=== PATIENT | female | born 1985 | race Caucasian/White ===

== ENCOUNTER 2016-04-13 15:04 | Emergency (ER) | payer OTHER | END 2016-04-13 15:43 | disposition left against medical advice (07) | LOC: UCEAST 15:04 | DX: O26.892 Other specified pregnancy related conditions, second trimester (principal); Z3A.26 26 weeks gestation of pregnancy; M79.89 Other specified soft tissue disorders; Z53.21 Procedure and treatment not carried out due to patient leaving prior to being seen by health care provider ==

== ENCOUNTER 2016-04-13 16:20 | Emergency (ER) | payer OTHER ==
[2016-04-13 18:02] LABS: Hematocrit 35 % (35-47); Hemoglobin 11.9 g/dl (12.0-16.0); Mean Corpuscular HGB Conc 34 g/dl (31-36); Mean Corpuscular Hemoglobin 30 pg (27-31); Mean Corpuscular Volume 90 fL (80-97); Mean Platelet Volume 10 um3 (7.4-10.4); Red Blood Count 3.95 10^6/ul (4.0-5.4); Red Cell Distribution Width 13 % (10.5-15); White Blood Count 7.6 10^3/ul (3.5-10.8)
--- NOTE | 2016-04-13 18:28 | RAD ---
HISTORY: Right calf pain COMPARISONS: None relevant TECHNIQUE: Multiple transverse and longitudinal ultrasound images were obtained of the right lower extremity from the level of the common femoral vein inferiorly through to the infrapopliteal veins using grayscale, color Doppler, and spectral Doppler imaging with and without compression and with augmentation. Comparison images were obtained of the contralateral common femoral vein. FINDINGS: VEINS: The venous system of the right lower extremity is compressible throughout its course, with normal flow on color Doppler imaging and normal response to augmentation on spectral Doppler imaging. SOFT TISSUES: Unremarkable. OTHER FINDINGS: None. IMPRESSION: NO RIGHT LOWER EXTREMITY DEEP VEIN THROMBOSIS
[2016-04-13 18:56] LABS: Albumin 3.6 g/dL (3.2-5.2); BUN/Creatinine Ratio 11.8 (8-20); Calcium 9.2 mg/dL (8.6-10.3); EGFR African American 131.6 (>60); EGFR Non-African American 102.3 (>60); Globulin 2.5 g/dL (2-4); Potassium 3.7 mmol/L (3.5-5.0); Total Bilirubin 0.4 mg/dL (0.2-1.0); Total Protein 6.1 g/dL (6.4-8.9)
[2016-04-13 19:16] VITALS: BP 137/91
[2016-04-13 19:20] LABS: Urine Bilirubin Negative (Negative); Urine Glucose Negative (Negative); Urine Nitrite Negative (Negative)
--- NOTE | 2016-04-13 19:32 | ED ---
Vpiul Echevarria Claudia, scribed for Mukul Almanzar MD on 04/13/16 at 1746 . Lower Extremity - HPI Summary HPI Summary: 30 year old female presents to the ED with right lateral lower leg pain sudden onset today. She denies any trauma. Pt is 27 weeks . She also notes that she called her PUBLIC ACCOUNTANT today and was awaiting their call. Pt denies any abd pain, vaginal bleeding/discharge, fever, chills. pt notes pain as 6/10 which is aggravated with ambulation. - History of Current Complaint Chief Complaint: EDExtremityLower Stated Complaint: RIGHT LEG PAIN AND SWELLING/27 WKS PREG Time Seen by Provider: 04/13/16 17:35 Hx Last Menstrual Period: 09/16/15 Onset of Pain: Days Pain Intensity: 6 Pain Scale Used: 0-10 Numeric Associated Signs And Symptoms: Negative: Abdominal Pain, Knee Pain Aggravating Factor(s): Ambulation - Allergies/Home Medications Allergies/Adverse Reactions: Allergies Allergy/AdvReac Type Severity Reaction Status Date / Time Fish Allergy Allergy Airway Verified 11/04/15 20:49 Obstruction PMH/Surg Hx/FS Hx/Imm Hx Previously Healthy: Yes Endocrine/Hematology History: Denies: Hx Diabetes, Hx Thyroid Disease Cardiovascular History: Reports: Hx Hypertension - Adrenal mass, kidney mass Denies: Hx Pacemaker/ICD Respiratory History: Denies: Hx Asthma, Hx Chronic Obstructive Pulmonary Disease (COPD) GI History: Denies: Hx Ulcer Sensory History: Denies: Hx Hearing Aid Psychiatric History: Denies: Hx Panic Disorder - Surgical History Surgery Procedure, Year, and Place: 2 c-sect Infectious Disease History: No Infectious Disease History: Denies: Hx Hepatitis, Hx Human Immunodeficiency Virus (HIV), History Other Infectious Disease, Traveled Outside the [place] in Last 30 Days - Family History Known Family History: Negative: Seizure Disorder - Social History Occupation: Employed Full-time Lives: With Family Alcohol Use: Rare Substance Use Type: Reports: None Smoking Status (MU): Never Smoked Tobacco Review of Systems Constitutional: Negative Negative: Fever, Chills Eyes: Negative ENT: Negative Cardiovascular: Negative Respiratory: Negative Gastrointestinal: Negative Negative: Abdominal Pain Genitourinary: Negative Negative: discharge Positive: Other - right lower leg pain Skin: Negative Neurological: Negative Psychological: Normal All Other Systems Reviewed And Are Negative: Yes Physical Exam Triage Information Reviewed: Yes Vital Signs On Initial Exam: Initial Vitals Temp Pulse Resp BP Pulse Ox 98.2 F 83 20 156/97 100 04/13/16 16:23 04/13/16 16:23 04/13/16 16:23 04/13/16 16:23 04/13/16 16:23 Vital Signs Reviewed: Yes Appearance: Positive: Well-Appearing, No Pain Distress, Well-Nourished Skin: Positive: Warm, Skin Color Reflects Adequate Perfusion, Dry Eyes: Positive: Normal ENT: Positive: Normal ENT inspection Respiratory/Lung Sounds: Positive: Clear to Auscultation, Breath Sounds Present Cardiovascular: Positive: RRR, Other - elevated BP. Negative: Leg Edema Left, Leg Edema Right Abdomen Description: Positive: Nontender, Soft Musculoskeletal: Positive: Normal, Strength/ROM Intact Neurological: Positive: Normal Psychiatric: Positive: Normal, Affect/Mood Appropriate Diagnostics - Vital Signs Vital Signs Temp Pulse Resp BP Pulse Ox 04/13/16 16:23 98.2 F 83 20 156/97 100 - Laboratory Lab Results: Lab Results 04/13/16 04/13/16 04/13/16 Range/Units 17:55 17:55 18:50 WBC 7.6 (3.5-10.8) 10^3/ul RBC 3.95 L (4.0-5.4) 10^6/ul Hgb 11.9 L (12.0-16.0) g/dl Hct 35 (35-47) % MCV 90 (80-97) fL MCH 30 (27-31) pg MCHC 34 (31-36) g/dl RDW 13 (10.5-15) % Plt Count 156 (150-450) 10^3/ul MPV 10 (7.4-10.4) um3 Sodium 136 (133-145) mmol/L Potassium 3.7 (3.5-5.0) mmol/L Chloride 104 (101-111) mmol/L Carbon Dioxide 27 (22-32) mmol/L Anion Gap 5 (2-11) mmol/L BUN 8 (6-24) mg/dL Creatinine 0.68 (0.51-0.95) mg/dL Est GFR ( Amer) 131.6 (>60) Est GFR (Non-Af Amer) 102.3 (>60) BUN/Creatinine Ratio 11.8 (8-20) Glucose 92 (70-100) mg/dL Calcium 9.2 (8.6-10.3) mg/dL Total Bilirubin 0.40 (0.2-1.0) mg/dL AST 17 (13-39) U/L ALT 12 (7-52) U/L Alkaline Phosphatase 50 (34-104) U/L Lactate Dehydrogenase 140 (140-271) U/L Total Protein 6.1 L (6.4-8.9) g/dL Albumin 3.6 (3.2-5.2) g/dL Globulin 2.5 (2-4) g/dL Albumin/Globulin Ratio 1.4 (1-3) Urine Color Yellow Urine Appearance Cloudy Urine pH 7.0 (5-9) Ur Specific [place] 1.015 (1.010-1.030) Urine Protein Negative (Negative) Urine Ketones Negative (Negative) Urine Blood Negative (Negative) Urine Nitrate Negative (Negative) Urine Bilirubin Negative (Negative) Urine Urobilinogen Negative (Negative) Ur Leukocyte Esterase Negative (Negative) Urine Glucose Negative (Negative) Result Diagrams: 04/13/16 17:55 04/13/16 17:55 Lab Statement: Any lab studies that have been ordered have been reviewed, and results considered in the medical decision making process. - Additional Comments Diagnostic Additional Comments: LE VENOUS DOPPLER STUDY: NO RIGHT LOWER EXTREMITY DEEP VEIN THROMBOSIS Re-Evaluation - Re-Evaluation 1 Re-Evaluation Time: 19:07 Change: Improved - Pt is feeling improved Lower Extremity Course/Dx - Diagnoses Differential Diagnosis/HQI/PQRI: Positive: Contusion, DVT, Other - Primary concern for muscle pain, but will eval for DVT since . Low wells risk. Bloodwork for HELLP, but will consult with PUBLIC ACCOUNTANT after labwork since already with HTn in on labetalol. Provider Diagnoses: Leg pain, lateral - Physician Notifications Discussed Care of Patient With: DIscussed care of pt with Dr. Rodgers whom recoomends d/c with f/o with OBGYN this week. Time Discussed With Above Provider: 19:05 Discharge - Discharge Plan Condition: Stable Disposition: HOME Patient Education Materials: Leg Pain (ED) Referrals: Angeline Lim, BORDER MEASURER [Primary Care Provider] - If Needed The documentation as recorded by the Vipul tejada Claudia accurately reflects the service I personally performed and the decisions made by me, Mukul Almanzar MD.
== END 2016-04-13 19:16 | disposition home or self-care (01) ==
LOC: ED 16:20
DX: M79.661 Pain in right lower leg (principal)
CPT/HCPCS: 36415; 80053; 81003; 83615; 85027; 99282

== ENCOUNTER 2016-06-16 20:14 | Observation (INO) | payer OTHER ==
[2016-06-16 20:48] LABS: Hematocrit 35 % (35-47); Hemoglobin 11.4 g/dl (12.0-16.0); Mean Corpuscular HGB Conc 33 g/dl (31-36); Mean Corpuscular Hemoglobin 27 pg (27-31); Mean Corpuscular Volume 81 fL (80-97); Mean Platelet Volume 10 um3 (7.4-10.4); Red Cell Distribution Width 14 % (10.5-15); White Blood Count 8.1 10^3/ul (3.5-10.8)
[2016-06-16 21:13] LABS: Uric Acid 4.9 mg/dL (2.3-6.6)
[2016-06-16] MEDS ORDERED: oxyCODONE/Acetamin 5/325 MG* TAB PO PRN (21:34)
[2016-06-16] MEDS ORDERED: oxyCODONE/Acetamin 5/325 MG* TAB ONE (21:35)
[2016-06-16] MEDS ORDERED: Labetalol TAB* 100 MG ONE (21:35)
[2016-06-16] MEDS ORDERED: Labetalol TAB* 100 MG PO ONE (21:35)
[2016-06-17 06:17] VITALS: BP 123/77
[2016-06-17] MEDS ORDERED: Labetalol TAB* 200 MG PO SCH ×2 (10:00)
== END 2016-06-17 15:40 | disposition home or self-care (01) ==
LOC: MCHOBOUT 20:14 → MCHOB 21:38
PROVIDERS: ADMIT Obstetrics & Gynecology; ATTEND Obstetrics & Gynecology
DX: O16.3 Unspecified maternal hypertension, third trimester (principal); Z3A.35 35 weeks gestation of pregnancy; D69.6 Thrombocytopenia, unspecified
CPT/HCPCS: 36415; 81002; 84450; 84460; 84550; 85025; 99215; A9270-GY; G0378; G0463

== ENCOUNTER 2016-06-29 08:29 | Inpatient (IN) | payer OTHER ==
[2016-06-29 10:17] LABS: Hematocrit 38 % (35-47); Hemoglobin 12.1 g/dl (12.0-16.0); Mean Corpuscular HGB Conc 32 g/dl (31-36); Mean Corpuscular Hemoglobin 26 pg (27-31); Mean Corpuscular Volume 82 fL (80-97); Mean Platelet Volume 10 um3 (7.4-10.4); Red Blood Count 4.61 10^6/ul (4.0-5.4); Red Cell Distribution Width 15 % (10.5-15); White Blood Count 7.9 10^3/ul (3.5-10.8)
[2016-06-29 10:18] LABS: Add Diff/Slide Review? Slide Review Added; Comments Flag Yes
[2016-06-29 10:26] LABS: Albumin 3.7 g/dL (3.2-5.2); BUN/Creatinine Ratio 15.6 (8-20); Calcium 9.7 mg/dL (8.6-10.3); EGFR Non-African American 88.6 (>60); Potassium 3.5 mmol/L (3.5-5.0); Total Bilirubin 0.8 mg/dL (0.2-1.0); Total Protein 6.7 g/dL (6.4-8.9); Uric Acid 7.3 mg/dL (2.3-6.6)
[2016-06-29 11:45] LABS: Urine Bacteria Absent (Absent); Urine Bilirubin Negative (Negative); Urine Glucose Negative (Negative); Urine Nitrite Negative (Negative)
--- NOTE | 2016-06-29 14:11 | RAD ---
Indication: RIGHT upper quadrant pain. Nausea and vomiting. Comparison: No relevant prior exams available on the [facility]. Technique: RIGHT upper quadrant ultrasound. Report: Gravid uterus limits acoustic window. Appropriate direction flow documented in the portal and hepatic veins. 14.4 cm cephalocaudal liver is increased in echogenicity consistent with fatty infiltration. No focal hepatic lesions or biliary dilatation. 2.5 mm common bile duct. Adequately distended gallbladder with normal 2 mm wall is without sonographic abnormality. Negative for sonographic Vaughan's sign. Limited visualized pancreas is grossly unremarkable. Negative for ascites. 10.5 x 4.1 x 6.1 cm RIGHT kidney is remarkable for echogenic papilla and moderately thin cortex. No conspicuous shadowing echogenic foci to confirm nephrolithiasis. Negative for hydronephrosis. IMPRESSION: 1. Fatty infiltration of the liver. 2. Negative for gallbladder pathology. 3. Suggestion of medullary sponge kidney without conspicuous stones or hydronephrosis.
[2016-06-29] MEDS ORDERED: Sodium Citrate/Citric Acid* 15 ML UDC PO ONE (15:40)
[2016-06-29] MEDS ORDERED: Acetaminophen TAB* 325 MG PO PRN (15:41)
[2016-06-29] MEDS: SUCRALFATE 1 GM/10 ML PO SCH (17:40)
[2016-06-29] MEDS ORDERED: Nalbuphine* 20 MG/ML 1 ML VIAL IV PRN (19:19)
[2016-06-29] MEDS ORDERED: Promethazine INJ(RESTRICTED)* 25 MG/ML 1 ML VIAL IV PRN (19:19)
[2016-06-29] MEDS ORDERED: Nalbuphine* 20 MG/ML 1 ML VIAL ONE (20:00)
[2016-06-30] MEDS ORDERED: oxyCODONE/Acetamin 5/325 MG* TAB PO PRN (02:53)
[2016-06-30 06:36] LABS: Hematocrit 32 % (35-47); Hemoglobin 10.3 g/dl (12.0-16.0); Mean Corpuscular HGB Conc 32 g/dl (31-36); Mean Corpuscular Hemoglobin 26 pg (27-31); Mean Corpuscular Volume 81 fL (80-97); Mean Platelet Volume 10 um3 (7.4-10.4); Red Cell Distribution Width 15 % (10.5-15); White Blood Count 8.7 10^3/ul (3.5-10.8)
[2016-06-30 07:09] LABS: ALT 27 U/L (7-52); AST 26 U/L (13-39); Alkaline Phosphatase 109 U/L (34-104); Anion Gap 12 mmol/L (2-11); BUN/Creatinine Ratio 7.8 (8-20); Blood Urea Nitrogen 5 mg/dL (6-24); CO2 Carbon Dioxide 20 mmol/L (22-32); Calcium 8.4 mg/dL (8.6-10.3); Chloride 105 mmol/L (101-111); EGFR African American 141.1 (>60); EGFR Non-African American 109.7 (>60); Globulin 2.8 g/dL (2-4); Glucose 71 mg/dL (70-100); Potassium 3.2 mmol/L (3.5-5.0); Sodium 137 mmol/L (133-145); Total Protein 5.8 g/dL (6.4-8.9)
[2016-06-30] MEDS: SUCRALFATE 1 GM/10 ML PO SCH ×2 (08:25→11:43)
[2016-06-30 10:21] LABS: Urine Total Protein/24HR 266 mg/24Hr (0-165)
[2016-06-30 11:32] LABS: Lipase < 10 U/L (11.0-82.0)
[2016-06-30] MEDS: Labetalol TAB* 200 MG PO SCH ×2 (11:44→14:42)
[2016-06-30] MEDS ORDERED: SUCRALFATE 1 GM/10 ML PO SCH (12:00)
[2016-06-30 12:29] LABS: Magnesium 1.6 mg/dL (1.9-2.7)
[2016-06-30] MEDS ORDERED: Magnesium Sulfate 2 GM IV* 2 GM/50 ML BAG IVPB ONE (12:47)
[2016-06-30] MEDS ORDERED: Ondansetron INJ* 2 MG/ML VIAL IV PRN (12:52)
[2016-06-30] MEDS ORDERED: NS 0.9% 1000 ML* 1,000 ML IV ONE (12:55)
[2016-06-30] MEDS ORDERED: Pantoprazole IV* 40 MG IV ONE (13:20)
[2016-06-30] MEDS ORDERED: Magnesium Sulfate 2 GM IV* 2 GM/50 ML BAG ONE (14:11)
[2016-06-30] MEDS ORDERED: Pantoprazole IV* 40 MG ONE (14:16)
[2016-06-30] MEDS: Pantoprazole IV* 80 MG in NS 0.9% 250 ML* 250 ML IVPB SCH (14:26)
[2016-06-30] MEDS: KCL 20 MEQ/100 ML IVPREMIX* 20 MEQ/100 ML BAG IV SCH ×2 (15:41→18:07)
[2016-06-30] MEDS: NS 0.9% 1000 ML* 1,000 ML IV SCH ×2 (15:45→19:36)
[2016-06-30] MEDS: Sucralfate TAB* 1 GM PO SCH ×2 (17:26→21:57)
--- NOTE | 2016-06-30 19:22 | CONS ---
CONSULTATION REPORT: DATE OF CONSULT: 06/30/16 REQUESTING PROVIDER: Dr. Bell. REASON FOR CONSULT: Persistent nausea, vomiting, and abdominal pain. HISTORY OF PRESENT ILLNESS: Ms. Pace is a 30-year-old female, who is currently 37 weeks' with her third child, who presents initially to the hospital on 06/29/16 with complaints of nausea and vomiting that began over the weekend. The patient states that she had significant nausea and vomiting early on in her ; however, had been doing relatively well up until this past Wednesday. She states that she was not feeling completely well on Wednesday ; however, on Wednesday, began to have crampy abdominal pain, which made her think she was in labor; however, the abdominal pain did not worsen, it has turned out to not be the case. She along with the crampy abdominal pain had significant vomiting. She states that she had a very stressful Wednesday. She states she cannot keep anything down. She states that she was vomiting, almost persistently, she states more than 10 times per day. She felt that on the Wednesday evening, there was blood in the vomit. She states the vomit looked brown in color, but tasted like blood. Yesterday, after being admitted to the hospital, she began to notice flecks of bright red blood in her vomit. The patient states that in addition to the vomiting, she has been having epigastric and right upper quadrant abdominal pain. She states that it has been coming and going, it is worse with the vomiting, but otherwise is not just preceding the vomiting. She states nothing has really helped with her symptoms. She also admits to headache when she is vomiting. She denies any NSAID use. She does admit to using an uncoated baby aspirin daily. PAST MEDICAL HISTORY: 1. Hypertension. 2. Left adrenal mass. 3. The patient states that she had influenza 1-1/2 months ago. PAST SURGICAL HISTORY: x2. MEDICATIONS: 1. Labetalol 200 mg p.o. b.i.d. 2. Aspirin 81 mg p.o. b.i.d. 3. vitamin 1 tab p.o. daily. ALLERGIES: IODINE and HEPATITIS B VACCINE. FAMILY HISTORY: Mom is living, she is 56, she has history of hypertension and questionable diabetes. Dad is living, he is 57, he has COPD. SOCIAL HISTORY: The patient is a nonsmoker. She does not drink alcohol currently. 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 She is engaged. She has 2 older children, who are healthy. She indicates Pedro Schulz is her healthcare proxy. REVIEW OF SYSTEMS: The patient denies any fevers or chills. She has a good appetite, but every time she tries to eat, she vomits. She denies any chest pain. No edema. She has occasional cough and after coughing, she vomits. She has shortness of breath with exertion. She admits to nausea, vomiting, and abdominal pain as above. She states her last bowel movement was a couple of days ago. No hematuria, no dysuria. She does, however, note that her urine is very dark and has been in small amounts. No focal weakness or sensory loss. No sudden changes in vision. No dysphagia. No joint pains or muscle pains out of ordinary. No rashes. She has some anxiety and is upset about her current situation, just wanting to go home. PHYSICAL EXAM: Blood pressure 126/72; pulse 86; respirations 18; temp 99.2; O2 sat, I do not have measured, but she is on room air. General: The patient is a well-developed, young, thin, female, sitting in the bed, in no acute distress. HEENT: Pupils are equal. Extraocular muscles are intact. Oropharynx is clear. Oral mucosa is moist. There is no submandibular, cervical , or supraclavicular adenopathy. Thyroid is not enlarged. No thyroid nodules are noted. Cardiac: Normal S1, S2. Regular rate and rhythm. I did not appreciate any murmurs. Lungs are clear. Abdomen is gravid. Bowel sounds are present. The patient is tender in the epigastrium and right upper quadrant to palpation, appears to be worse in the epigastrium. Musculoskeletal: There is no cyanosis or clubbing of the digits. There is full active range of motion. Skin is warm and dry. There are no rashes. Neuro: Cranial nerves II through XII are grossly intact. Sensation is intact to light touch throughout. Strength is 5/5 and symmetric, both upper and lower extremities bilaterally. Psych: The patient is alert, she is oriented x3. Affect appears appropriate. LABORATORY DATA: WBC 8.7, hemoglobin 10.3, hematocrit 81, platelets 115. Sodium 137, potassium 3.2, chloride 105, CO2 20, BUN is 5, creatinine 0.64, glucose 71, calcium 8.4, magnesium 1.6. Bilirubin 0.9, AST 26, ALT 27, alk phos 109. Albumin 3.0, lipase less than 10. Urinalysis from June 29 reveals specific gravity of 1.025, 2+ ketones, 3+ leukocyte esterase, 2+ wbc's, absent bacteria. ASSESSMENT AND PLAN: Ms. Pace is a 30-year-old female, who is currently 37 weeks' with her third child, who was admitted to the OB floor with intractable nausea and vomiting. The hospitalist service was asked to consult on the patient for help in management and evaluation of the intractable nausea, vomiting, and abdominal pain. 1. Nausea, vomiting, abdominal pain. The differential includes a viral gastroenteritis; however, this has been going on for several days without any improvement whatsoever versus potentially a gastric ulcer due to aspirin use. I do believe this patient is significantly dehydrated. She states that she is only urinating very small amounts and it is still very dark in color. The patient has not been able to keep anything down over the last several days and despite receiving IV fluids routinely since admission yesterday, I do not think she has had quite enough fluid yet. We will go ahead and bolus her with 1 L of normal saline followed by 250 mL per hour x2 L, then down to 125 mL per hour. I would like to see the patient's urine output apple picker as well as the color of her urine lighten. In terms of the nausea and vomiting, I do question if this may also be partly related to dehydration. She has not been on any antiemetics and I will go ahead and start p.r.n. Zofran. If Zofran is not enough, we can consider adding another agent; however, we will need to have a discussion regarding its risks in . In terms of potential gastric ulcer, I will go ahead and put the patient on Protonix. I did speak with Dr. Bell about this. Protonix does carry a risk of teratogenicity. This is early on in and as the patient is 37 weeks' , this likely will have no effect and is considered acceptable late in . I will go ahead and use the Protonix drip as well as Carafate tabs to see if this helps with her symptoms. The patient will be transferred to the medical floor from the OB unit. 2. Hypertension. The patient had been on labetalol and verapamil prior to and once she felt that she was , she discontinued the verapamil on her own and had been on labetalol 100 mg p.o. t.i.d. She did not receive this in the hospital as she has not been able to keep anything down and in fact her blood pressure is under good control with systolics in the 120s to 130s range. 3. DVT prophylaxis. According to the Adult Thrombosis Prophylaxis Risk Factor Assessment Guide, the patient has a total risk factor score of 1 making her low risk. Ambulation will be utilized as DVT prophylaxis. 4. Code status is full. Thank you for this consultation. CC: Dr. Bell; Angeline Lim NP* [id number]/[facility] #: [id number] [facility] SETON HOSPITALDavid
[2016-07-01] MEDS ORDERED: Pantoprazole IV* 40 MG ONE ×2 (02:01→09:23)
[2016-07-01] MEDS: NS 0.9% 1000 ML* 1,000 ML IV SCH ×3 (02:12→18:30)
[2016-07-01] MEDS: Pantoprazole IV* 80 MG in NS 0.9% 250 ML* 250 ML IVPB SCH ×3 (02:18→14:23)
--- NOTE | 2016-07-01 07:23 | PN ---
Subjective Date of Service: 07/01/16 Interval History: Pt is feeling better today than when I saw her yesterday. She states she was able to keep apple juice down overnight which is an improvement as she was previously unable to keep anything down. She did vomit up some saltines however. She states she is urinating more frequently. She states the baby is moving like normal. No BM yet. Objective Active Medications: Acetaminophen (Tylenol Tab*) 650 mg PO Q4H PRN PRN Reason: PAIN Pantoprazole Sodium 80 mg/ (Sodium Chloride) 250 mls @ 25 mls/hr IVPB Q10H [facility] Last Admin: 07/01/16 02:18 Dose: Not Given Sodium Chloride (Ns 0.9% 1000 Ml*) 1,000 mls @ 250 mls/hr IV PER RATE [facility] Stop: 07/01/16 16:59 Last Admin: 06/30/16 19:36 Dose: 250 mls/hr Sodium Chloride (Ns 0.9% 1000 Ml*) 1,000 mls @ 125 mls/hr IV PER RATE [facility] Last Admin: 07/01/16 02:12 Dose: 125 mls/hr Ondansetron HCl (Zofran Inj*) 4 mg IV Q6H PRN PRN Reason: NAUSEA Oxycodone/Acetaminophen (Percocet 5/325 Tab*) 1 tab PO Q4H PRN PRN Reason: PAIN - MODERATE TO SEVERE Sucralfate (Carafate*) 1 gm PO ACHS [facility] Last Admin: 06/30/16 21:57 Dose: 1 gm Vital Signs 06/30/16 06/30/16 06/30/16 08:05 11:29 13:54 Temperature 100.0 F 99.2 F 98 F Pulse Rate 81 86 69 Respiratory 18 18 16 Rate Blood Pressure 127/73 126/72 119/67 (mmHg) O2 Sat by Pulse 99 Oximetry 06/30/16 06/30/16 06/30/16 15:54 19:58 20:00 Temperature 98.4 F Pulse Rate 77 Respiratory 16 16 16 Rate Blood Pressure 128/67 (mmHg) O2 Sat by Pulse 98 Oximetry 06/30/16 23:31 Temperature 97.9 F Pulse Rate 77 Respiratory 16 Rate Blood Pressure 126/62 (mmHg) O2 Sat by Pulse 97 Oximetry Oxygen Devices in Use Now: None Appearance: Young female lying in bed, NAD Eyes: No Scleral Icterus Ears/Nose/Mouth/Throat: Mucous Membranes Moist Respiratory: Symmetrical Chest Expansion and Respiratory Effort, Clear to Auscultation Cardiovascular: NL Sounds; No Murmurs; No JVD, RRR, No Edema Abdominal: - - Gravid abdomen, soft, finisher card tender to palpation in the epigastrum Extremities: No Clubbing, Cyanosis Skin: No Rash or Ulcers, No Nodules or Sclerosis Neurological: Alert and Oriented x 3 Result Diagrams: 06/30/16 06:16 06/30/16 06:16 Microbiology and Other Data: Microbiology 06/29/16 08:58 Urine Culture - Final Urine No Growth (<1,000 CFU/mL) Assess/Plan/Problems-Billing Ms Pace is a 30 yo F who is 37/38 weeks who presented to the OB floor with c/o intractable vomiting and epigastric pain and despite attempts at hydrating the patient she was failing to improved so transferred to the hospitalist service. - Patient Problems (1) Intractable vomiting Current Visit: Yes Status: Acute Code(s): R11.10 - VOMITING, UNSPECIFIED SNOMED Code(s): 535261124 Comment: Improved slightly today in that she was able to keep down apple juice overnight. She will try solid food again this AM. (2) Epigastric pain Current Visit: Yes Status: Acute Code(s): R10.13 - EPIGASTRIC PAIN SNOMED Code(s): 92047278 Comment: ? gastric ulcer related to ASA use. Continue protonix drip for now- ok'ed by Dr. Bell to use late in as there is very minimal risk of teratogenicity this far along. If pt is able to start eating and keep food down will consider sending her out on daily protonix for a week with re-evaluation by either her PCP or OB to continue. Continue carafate tab. (3) Current Visit: Yes Status: Acute Comment: Pt is 37-38 weeks -she does state her dates may be off. OB will continue to follow the patient on the floor. She states the baby is moving like usual. (4) HTN (hypertension) Current Visit: Yes Status: Acute Code(s): I10 - ESSENTIAL (PRIMARY) HYPERTENSION SNOMED Code(s): 77818462 Comment: BP has been under good control despite being off her usual dose of labetolol. Continue to follow. (5) DVT prophylaxis Current Visit: Yes Status: Acute Code(s): BFE8524 - SNOMED Code(s): 861105740 Comment: ambulation (6) Full code status Current Visit: Yes Status: Acute Code(s): Z78.9 - OTHER SPECIFIED HEALTH STATUS SNOMED Code(s): 909189755
[2016-07-01] MEDS: Sucralfate TAB* 1 GM PO SCH ×4 (08:07→23:32)
--- NOTE | 2016-07-01 17:41 | PN ---
Progress Note - Progress Note SOAP: Subjective: Pt at 37+5 wks, h/o prior C/S, admitted with intractable N/V. See H&P and subsequent notes. Pt since transferred to hospitalist service since issue is not - related and she has been receiving IVF and labs. Suspicion for gastric ulcer. Today pt reports continued very active FMs, no VB or abd pains. Concerned about baby since she has barely eaten anything for days. She has been tolerating juice today. Unable to keep down any breakfast or lunch , same with even crackers. She disliked Ensure, but she did keep it down. Objective: Vital Signs: Temp Pulse Resp BP Pulse Ox 98.0 F 73 16 149/98 100 07/01/16 16:55 07/01/16 16:55 07/01/16 11:42 07/01/16 16:55 07/01/16 16:55 Gen: NAD in bed, comfortable Abd gravid, nontender. NST pending Assessment: 37+5 wks, abdominal pain, N/V, possible ulcer Plan: Pt now well-hydrated and stable. Still with no ability to tolerate PO solid food. I would advise continuing with Ensure if still not able to eat, since that is far more nutrition than she will get with water or juice. Pt does not like the taste, but that is a small chaidez to pay for the nutrition. Pt reassured that baby will likely get whatever nutrition he needs from her, even if it is to her detriment. Will do NST now, continue daily. D/C to home per hospitalist judgment. Repeat C/S is planned for 07/10. Would likely not change that date unless evidence of either problems or clear evidence that delivery would improve mother's status. Pt with CHTN, and today's BP is consistent with previous BP. OB will continue to follow.
[2016-07-02] MEDS: NS 0.9% 1000 ML* 1,000 ML IV SCH (01:39)
[2016-07-02] MEDS: Pantoprazole IV* 80 MG in NS 0.9% 250 ML* 250 ML IVPB SCH ×2 (01:59→08:27)
[2016-07-02] MEDS: Sucralfate TAB* 1 GM PO SCH ×2 (07:49→12:14)
--- NOTE | 2016-07-02 10:01 | PN ---
Progress Note - Progress Note SOAP: Subjective: []pt feeling better. no nausea . no headache . kept yogurt down this am Objective: []132/78 off labetlol temp 98.8 pulse 72 no ruq pain uterus nontender ext trace edema. dtr 2+ platelet count had dropped to 115 post hydration proteinuria in 200's over 24 hours Assessment:neurlogic symptoms related to possible superimposed preeclampsia on chronic hypertension seemed to have resolved arguing against this diagnosis would recheck platelets and if unchanged or improved it would probably be reasonable to discharge with close follow up [] Plan:recheck platelets today available for further consultation Alex Humphries MD []
--- NOTE | 2016-07-02 10:09 | PN ---
Subjective Date of Service: 07/02/16 Interval History: Pt is feeling better this AM. She kept down yogurt and a pancake. She would like to go home if possible. Objective Active Medications: Acetaminophen (Tylenol Tab*) 650 mg PO Q4H PRN PRN Reason: PAIN Ondansetron HCl (Zofran Inj*) 4 mg IV Q6H PRN PRN Reason: NAUSEA Oxycodone/Acetaminophen (Percocet 5/325 Tab*) 1 tab PO Q4H PRN PRN Reason: PAIN - MODERATE TO SEVERE Sucralfate (Carafate*) 1 gm PO ACHS VIN Last Admin: 07/02/16 07:49 Dose: 1 gm Vital Signs 07/01/16 07/01/16 07/01/16 11:42 16:55 20:00 Temperature 98.8 F 98.0 F Pulse Rate 77 73 Respiratory 16 14 Rate Blood Pressure 121/76 149/98 (mmHg) O2 Sat by Pulse 98 100 Oximetry 07/01/16 07/01/16 07/02/16 20:33 23:35 03:39 Temperature 98.0 F 97.9 F 98.0 F Pulse Rate 86 75 74 Respiratory 16 14 16 Rate Blood Pressure 137/80 132/77 126/80 (mmHg) O2 Sat by Pulse 99 99 100 Oximetry 07/02/16 07:18 Temperature 98.8 F Pulse Rate 72 Respiratory 16 Rate Blood Pressure 132/78 (mmHg) O2 Sat by Pulse 99 Oximetry Oxygen Devices in Use Now: None Appearance: Young female lying in bed, NAD Eyes: No Scleral Icterus Ears/Nose/Mouth/Throat: Mucous Membranes Moist Respiratory: Symmetrical Chest Expansion and Respiratory Effort, Clear to Auscultation Cardiovascular: NL Sounds; No Murmurs; No JVD, RRR, No Edema Abdominal: - - gravid abdomen, BS+ soft, NT Extremities: No Clubbing, Cyanosis Skin: No Rash or Ulcers, No Nodules or Sclerosis Neurological: Alert and Oriented x 3 Result Diagrams: 06/30/16 06:16 06/30/16 06:16 Microbiology and Other Data: Microbiology 06/29/16 08:58 Urine Culture - Final Urine No Growth (<1,000 CFU/mL) Assess/Plan/Problems-Billing Ms Pace is a 30 yo F who is 37/38 weeks who presented to the OB floor with c/o intractable vomiting and epigastric pain and despite attempts at hydrating the patient she was failing to improved so transferred to the hospitalist service. - Patient Problems (1) Intractable vomiting Current Visit: Yes Status: Acute Code(s): R11.10 - VOMITING, UNSPECIFIED SNOMED Code(s): 952986089 Comment: Improved-kept down yogurt and pancake. (2) Epigastric pain Current Visit: Yes Status: Acute Code(s): R10.13 - EPIGASTRIC PAIN SNOMED Code(s): 64650333 Comment: Resolved. ? gastric ulcer secondary to ASA use. WIll stop protonix drip and start daily protonix. Will ask Dr. Humphries if she can come off the ASA. (3) Current Visit: Yes Status: Acute Comment: Dr. Humphries asked for repeat CBC to check her plt count. Baby is moving well and she is not having contractions. Likely home today if plt count stable. (4) HTN (hypertension) Current Visit: Yes Status: Acute Code(s): I10 - ESSENTIAL (PRIMARY) HYPERTENSION SNOMED Code(s): 21987044 Comment: BP has been under good control despite being off her usual dose of labetolol. Continue to follow. Stay off labetolol and follow up with OB closely after d/c to determine if she needs to go back on it. (5) DVT prophylaxis Current Visit: Yes Status: Acute Code(s): PDW6117 - SNOMED Code(s): 684582402 Comment: ambulation (6) Full code status Current Visit: Yes Status: Acute Code(s): Z78.9 - OTHER SPECIFIED HEALTH STATUS SNOMED Code(s): 065766628
[2016-07-02 11:26] LABS: Hematocrit 33 % (35-47); Mean Corpuscular HGB Conc 33 g/dl (31-36); Mean Corpuscular Hemoglobin 27 pg (27-31); Mean Corpuscular Volume 81 fL (80-97); Mean Platelet Volume 10 um3 (7.4-10.4); Red Blood Count 4.13 10^6/ul (4.0-5.4); Red Cell Distribution Width 15 % (10.5-15); White Blood Count 7.1 10^3/ul (3.5-10.8)
[2016-07-02 13:03] VITALS: BP 132/84
--- NOTE | 2016-07-03 00:13 | DS ---
DISCHARGE SUMMARY: DATE OF ADMISSION: 06/29/16 DATE OF DISCHARGE: 07/02/16 PRIMARY CARE PROVIDER: Angeline Lim NP. DOBBY LOOMS PEGGER: Dr. Moreno. PRINCIPAL DIAGNOSES: 1. Intractable vomiting - resolved. 2. Epigastric pain - possible gastric ulcer. SECONDARY DIAGNOSES: 1. 37 plus 6 weeks . 2. Hypertension. DISCHARGE MEDICATIONS: 1. Protonix 40 mg p.o. daily. 2. Tylenol 650 mg p.o. q.4 hours p.r.n. pain. HOSPITAL COURSE: Ms. Pace is a 30-year-old female who presented to [facility] at approximately 37 weeks with complaints of intractable vomiting and epigastric pain. The patient was admitted by Dr. Rodgers to the obstetric service. The patient was initially managed on Obstetrics with IV fluids and pain medication. Despite this, the patient continued to have intractable vomiting and was unable to keep anything down. The hospitalist service was asked to consult on the patient. After my consultation, ultimately it was asked that the hospitalist service take the patient on to our service. The patient had been receiving IV fluids; however, I felt that she is still likely very behind in her volume status. The patient states that she was only urinating very small amounts. The patient received 1 L bolus followed by 2 L at 250 mL an hour followed by 125 mL an hour persistently over the course of the next 24 to 36 hours. With this and the initiation of Protonix drip for presumed gastric ulcer related to aspirin use, the patient is finally feeling better. The patient was able to keep down both yogurt and pancake for breakfast. At this point, it was felt the patient is stable for discharge home. The patient does have a planned for 07/10/16. She has been recommended to discontinue her baby aspirin. Additionally, the patient has a history of hypertension and had been on labetalol; however, at this point, her blood pressure is under good control off the labetalol. The patient is going to be discharged home, not taking labetalol, but with close followup with her obstetrics group to ensure that her blood pressure remained stable. Of note, the patient's platelet count dropped during the course of the hospitalization. She came in at 144 and is down to 108 on the day of discharge. Dr. Humphries was concerned for possible preeclampsia; however, after performing an ultrasound of the baby, it was felt that the baby was doing quite well and she had a good amount of fluid surrounding the baby and therefore, discharged home with very close followup was recommended. The patient has been scheduled to see Dr. Corona on 07/06/16, at 10 a.m. FOLLOWUP CONCERNS: The patient is being discharged home today, 07/02/16. She is to follow up with Angeline Lim NP in the next 4 to 7 days, and Dr. Corona on 07/06/16 at 10 a.m. ACTIVITY LEVEL: As tolerated. DIET: Regular, as tolerated. CONDITION ON DISCHARGE: Stable. TIME SPENT: Thirty five minutes was spent discharging this patient. CC: Dr. Moreno; Angeline Lim NP* [id number]/[facility] #: [id number] MTDDavid
== END 2016-07-02 13:30 | disposition home or self-care (01) | DRG 566 ==
LOC: MCHOBOUT 08:29 → MCHOB 06-30 08:55 → MCHOBOUT 06-30 11:17 → MCHOB 06-30 11:18 → INTOOBSV 06-30 11:18 → MED 06-30 13:42 → OBSVTOIN 06-30 14:25
PROVIDERS: ADMIT Obstetrics & Gynecology; ATTEND Hospitalist
DX: O26.893 Other specified pregnancy related conditions, third trimester (principal); K25.9 Gastric ulcer, unspecified as acute or chronic, without hemorrhage or perforation; O16.3 Unspecified maternal hypertension, third trimester; E87.6 Hypokalemia; Z3A.37 37 weeks gestation of pregnancy
CPT/HCPCS: 36415; 76705; 76815; 80053; 81003; 81015; 83690; 83735; 84156; 84550; 85025; 85027; 86850; 86900; 86901; 87086; A9270-GY; J2300; J2550; J3480

== ENCOUNTER 2016-07-10 05:53 | Inpatient (IN) | payer OTHER ==
[2016-07-10] MEDS ORDERED: Sodium Citrate/Citric Acid* 15 ML UDC PO ONE (06:00)
[2016-07-10] MEDS ORDERED: Buffered Lidocaine 1% SYRIN* 3 ML/SYR SYRINGE INTRADERM ONE (06:00)
[2016-07-10] MEDS ORDERED: Bupivacaine 0.5% SDV PF* 30 ML VIAL ONE (07:30)
[2016-07-10] MEDS ORDERED: Famotidine IV* 10 MG/ML 2 ML (20 mg) ONE (07:30)
[2016-07-10] MEDS ORDERED: OXYTOCIN* 10 UNITS/ML 1 ML VIAL ONE (07:30)
[2016-07-10] MEDS ORDERED: Morphine PF AMP (0.5MG/ML)* 5 MG/10 ML AMP ONE (07:31)
[2016-07-10] MEDS ORDERED: ceFOXitin 2 GM IVPREMIX* 2 GM/50 ML BAG ONE (07:39)
[2016-07-10] MEDS ORDERED: Phenylephrine IV* 40 MCG/ML 10 ML SYRINGE ONE (07:57)
[2016-07-10] MEDS ORDERED: ceFOXitin 2 GM IVPREMIX* 2 GM/50 ML BAG IVPB ONE (08:00)
[2016-07-10] MEDS ORDERED: DiMENhydriNATE IV* 50 MG/ML VIAL IV PUSH PRN ×2 (08:23→20:55)
[2016-07-10] MEDS ORDERED: fentaNYL* 50 MCG/ML 2 ML VIAL (100 MCG VIAL) IV PRN (08:23)
[2016-07-10] MEDS ORDERED: Ketorolac INJ* 30 MG/ML 1 ML VIAL ONE (08:36)
[2016-07-10] MEDS ORDERED: Witch Hazel PAD* JAR TOPICAL PRN (09:05)
[2016-07-10] MEDS ORDERED: Glycerin ADULT SUPP PR PRN (09:05)
[2016-07-10] MEDS ORDERED: oxyCODONE/Acetamin 5/325 MG* TAB PO PRN ×2 (09:05)
[2016-07-10] MEDS ORDERED: Dibucaine 1% 28.35 GM TUBE PR PRN (09:05)
[2016-07-10] MEDS ORDERED: DiMENhydriNATE IV* 50 MG/ML VIAL ONE (09:48)
[2016-07-10] MEDS ORDERED: Oxytocin in LR* 20 UNITS/1,000 ML BAG IVPB SCH (10:00)
[2016-07-10] MEDS ORDERED: Scopolamine 1.5 mg* PATCH ONE (11:15)
[2016-07-10] MEDS ORDERED: Scopolamine 1.5 mg* PATCH TRANSDERM ONE (13:00)
[2016-07-10] MEDS ORDERED: Labetalol IV* 5 MG/ML 20 ML VIAL IV PUSH ONE (15:00)
[2016-07-10] MEDS ORDERED: Ammonia Inhalant* 1 EA AMP ONE (16:40)
[2016-07-10] MEDS: Simethicone CHEW TAB* 80 MG PO SCH ×3 (18:22→21:17)
[2016-07-10] MEDS: Docusate CAP* 100 MG PO SCH ×2 (18:22→21:17)
[2016-07-10] MEDS ORDERED: HYDROcodone/ACETAMIN 5-325 MG* 1 TAB PO PRN ×2 (20:55)
[2016-07-10] MEDS ORDERED: Naloxone* 0.4 MG/ML 1 ML VIAL IV PRN (20:55)
[2016-07-10] MEDS ORDERED: Nalbuphine* 20 MG/ML 1 ML VIAL IV PRN (20:55)
[2016-07-10] MEDS ORDERED: PROCHLORPERAZINE INJ 5 MG/ML 2 ML VIAL IV PRN (20:55)
[2016-07-10] MEDS ORDERED: Ondansetron INJ* 2 MG/ML VIAL IV PRN (20:55)
[2016-07-10] MEDS ORDERED: diPHENhydraMINE IV* 50 MG/ML 1 ml VIAL (BENADRYL) IV PRN (20:55)
[2016-07-10] MEDS ORDERED: HYDROmorphone TAB* 2 MG PO PRN (20:57)
[2016-07-10] MEDS ORDERED: Acetaminophen TAB* 325 MG PO SCH (21:00)
[2016-07-10] MEDS: Labetalol TAB* 200 MG PO SCH (21:17)
[2016-07-11] MEDS: Ketorolac INJ* 30 MG/ML 1 ML VIAL IV SCH ×3 (00:40→20:13)
--- NOTE | 2016-07-11 04:43 | OP ---
DATE OF OPERATION: 07/10/16 - ROOM #[id number] DATE OF : 87 SURGEON: Radha Moreno MD STITCHDOWN THREAD LASTER: Dr. Humphries. ANESTHESIOLOGIST: Dr. Short ANESTHESIA: Spinal PRE-OP DIAGNOSIS: Intrauterine at 39 and 0/7, desires repeat section. POST-OP DIAGNOSIS: Intrauterine at 39 and 0/7, desires repeat section, delivered. OPERATIVE PROCEDURE: Repeat low transverse section with vacuum extraction. ESTIMATED BLOOD LOSS: 500 cc. URINE OUTPUT: 400 cc of clear yellow urine. FLUIDS: 1500 cc of crystalloid. FINDINGS: Revealed a vertex male infant with Apgars 9 at one minute and 9 at five minutes, weight was 7 pounds 2 ounces. No nuchal cord. No meconium. Normally palpated tubes and ovaries. Normal uterine cavity with no evidence of retained placental tissue or membranes. Normal placenta, manually extracted three-vessel cord and intact. COMPLICATIONS: None apparent. DISPOSITION: Stable to recovery room. DESCRIPTION OF PROCEDURE: The patient was placed in dorsal lithotomy position. The abdomen was prepped and draped in the sterile standard fashion. The patient was identified with the universal protocol and also checked for appropriate level of anesthesia with an Allis. After confirming universal protocol and correct level of anesthesia, incision was made with scalpel through prior incision. This incision was carried down through the fascia. Fascia was scored in the midline. The fascial incision was extended laterally and superiorly using curved Castro scissors. The fascia was superiorly and inferiorly from the rectus muscle with blunt and sharp dissection. The peritoneum was then entered bluntly. Peritoneal incision was extended bluntly while directly visualizing bowel and bladder. The Abdelrahman retracting device was then inserted in the standard fashion. The lower uterine segment was identified. Bladder flap was created through blunt and sharp dissection. An Allis was used to tented up on the lower uterine segment. An incision was made with scalpel. This was extended laterally and superiorly using bandage scissors. Amniotomy was created for clear fluid. The was found to be wedged all the way and a vacuum was applied. The head was then delivered. No nuchal cord, no meconium was appreciated. Anterior, then posterior shoulder delivered. Cord was then doubly clamped and then cut, and baby was handed off to the awaiting vessel engineer, Dr. Devapatla. Appropriate cord blood was obtained from the placenta. The placenta was then manually extracted, removed, noted to be intact with three-vessel cord. The uterine cavity was explored and noted to be free of any membranes or placental tissue. The uterine hysterotomy site was then reapproximated in 2 layers, first layer running locked 0 Vicryl , second layer running imbricated 0 Vicryl. Hemostasis was assured at the hysterotomy site, where repaired hysterotomy site. Tubes and ovaries were then palpated and noted to palpate normally. Abdelrahman retracting device was then removed in standard technique. The peritoneum was clamped with Maru's and then reapproximated using 3-0 Vicryl in a running fashion for reapproximation of the peritoneum. Subfascial area was visualized. Hemostasis assured with Bovie coagulation. The fascia itself was then reapproximated using 0 Vicryl x2. Subcu was lavaged. Hemostasis assured with Bovie coagulation and the skin itself was then reapproximated with 4-0 Monocryl. Mastisol and Steri's were applied for excellent reapproximation of the skin. All sponge, needle, instruments, and blade counts were correct throughout the case. The patient tolerated the procedure well and went to recovery room in stable condition. [id number]/[facility] #: [id number] AMADA
[2016-07-11 08:30] LABS: Hematocrit 34 % (35-47); Hemoglobin 10.9 g/dl (12.0-16.0); Mean Corpuscular HGB Conc 32 g/dl (31-36); Mean Corpuscular Hemoglobin 26 pg (27-31); Mean Corpuscular Volume 80 fL (80-97); Mean Platelet Volume 10 um3 (7.4-10.4); Red Blood Count 4.26 10^6/ul (4.0-5.4); Red Cell Distribution Width 15 % (10.5-15); White Blood Count 12.9 10^3/ul (3.5-10.8)
[2016-07-11] MEDS ORDERED: Ferrous Gluconate TAB* 324 MG TAB PO SCH (09:00)
[2016-07-11] MEDS: Docusate CAP* 100 MG PO SCH ×3 (09:12→21:25)
[2016-07-11] MEDS: Simethicone CHEW TAB* 80 MG PO SCH ×4 (09:12→21:26)
[2016-07-11] MEDS: Labetalol TAB* 200 MG PO SCH ×2 (09:12→21:29)
[2016-07-11] MEDS: Omeprazole CAP* 20 MG PO SCH (09:12)
[2016-07-11] MEDS ORDERED: HYDROcodone/ACETAMIN 5-325 MG* 1 TAB PO PRN (11:10)
[2016-07-11] MEDS: Acetaminophen TAB* 325 MG PO PRN (19:04)
[2016-07-11] MEDS: HYDROcodone/ACETAMIN 5-325 MG* 1 TAB PO PRN (21:26)
[2016-07-12] MEDS: HYDROcodone/ACETAMIN 5-325 MG* 1 TAB PO PRN ×3 (05:32→21:27)
[2016-07-12] MEDS: Docusate CAP* 100 MG PO SCH ×3 (08:00→21:27)
[2016-07-12] MEDS: Omeprazole CAP* 20 MG PO SCH (08:07)
[2016-07-12] MEDS: Acetaminophen TAB* 325 MG PO PRN (08:07)
[2016-07-12] MEDS: Labetalol TAB* 200 MG PO SCH ×2 (08:07→21:27)
[2016-07-12] MEDS: Simethicone CHEW TAB* 80 MG PO SCH ×4 (08:07→21:27)
[2016-07-13] MEDS: HYDROcodone/ACETAMIN 5-325 MG* 1 TAB PO PRN ×4 (03:25→16:10)
[2016-07-13 07:54] VITALS: BP 153/86
[2016-07-13] MEDS: Simethicone CHEW TAB* 80 MG PO SCH ×2 (08:40→13:06)
[2016-07-13] MEDS: Docusate CAP* 100 MG PO SCH ×2 (08:40→16:10)
[2016-07-13] MEDS: Omeprazole CAP* 20 MG PO SCH (08:40)
[2016-07-13] MEDS: Labetalol TAB* 200 MG PO SCH (08:40)
== END 2016-07-13 17:12 | disposition home or self-care (01) | DRG 540 ==
LOC: MCHOB 05:53
PROVIDERS: ADMIT Obstetrics & Gynecology; ATTEND Obstetrics & Gynecology
PROC: 10D00Z1 Extraction of Products of Conception, Low, Open Approach (ICD-10-PCS; principal; 2016-07-10 08:45)
DX: O34.211 Maternal care for low transverse scar from previous cesarean delivery (principal); O10.92 Unspecified pre-existing hypertension complicating childbirth; Z3A.39 39 weeks gestation of pregnancy; Z37.0 Single live birth
CPT/HCPCS: 36415; 85025; A9270-GY; J0694; J1240; J1885; J2590

== ENCOUNTER 2016-09-14 10:59 | Emergency (ER) | payer OTHER ==
[2016-09-14] MEDS ORDERED: Aspirin Low Dose CHEW TAB* 81 MG PO ONE (12:02)
[2016-09-14] MEDS ORDERED: niCARdipine 0.1MG/ML IVPREMIX* 20 MG/200 ML BAG IV ONE (12:18)
[2016-09-14 12:40] LABS: Hematocrit 46 % (35-47); Mean Corpuscular HGB Conc 33 g/dl (31-36); Mean Corpuscular Hemoglobin 28 pg (27-31); Mean Corpuscular Volume 85 fL (80-97); Mean Platelet Volume 9 um3 (7.4-10.4); Red Blood Count 5.35 10^6/ul (4.0-5.4); Red Cell Distribution Width 19 % (10.5-15)
[2016-09-14 12:55] LABS: BUN/Creatinine Ratio 19.2 (8-20); Calcium 10.2 mg/dL (8.6-10.3); EGFR African American 85.3 (>60); EGFR Non-African American 66.3 (>60); Magnesium 2.3 mg/dL (1.9-2.7); Potassium 3.1 mmol/L (3.5-5.0); Total Bilirubin 0.8 mg/dL (0.2-1.0)
--- NOTE | 2016-09-14 12:57 | RAD ---
INDICATION: Headaches COMPARISON: None TECHNIQUE: Noncontrast axial source images were acquired from the skull base to the vertex. FINDINGS: Ventricles/sulci: The ventricles and cisterns are normal in size and configuration for age. Brain parenchyma: There is no focal parenchymal finding, evidence of intracranial mass, or intracranial mass effect. Intracranial hemorrhage:None. Extra-axial spaces: There are no abnormal extra axial fluid collections or evidence of extra-axial mass. Calvarium: There is no calvarial fracture or other calvarial abnormality. Scalp: There is no evidence of scalp or extracalvarial soft tissue abnormality. Paranasal sinuses/mastoid: The paranasal sinuses and mastoid air cells are clear. Other: None. IMPRESSION: NEGATIVE EXAMINATION
--- NOTE | 2016-09-14 13:27 | RAD ---
HISTORY: Severe headache COMPARISONS: None VIEWS:1: Single frontal portable view of the chest at 1:10 PM FINDINGS: LINES AND TUBES: None. CARDIOMEDIASTINAL SILHOUETTE: The cardiomediastinal silhouette is normal for portable technique. PLEURA: The costophrenic angles are sharp. No pleural abnormalities are noted. LUNG PARENCHYMA: The lungs are clear. ABDOMEN: The upper abdomen is clear. There is no subphrenic gas. BONES AND SOFT TISSUES: No bone or soft tissue abnormalities are noted. IMPRESSION: NO ACTIVE CARDIOPULMONARY DISEASE.
[2016-09-14] MEDS ORDERED: diPHENhydraMINE IV* 50 MG in NS 0.9% 50 ML* 50 ML IVPB ONE (13:45)
[2016-09-14] MEDS ORDERED: Dexamethasone IV* 4 MG/ML 5 ML VIAL (20 MG) IVPB ONE (13:45)
[2016-09-14] MEDS ORDERED: Metoclopramide IV* 5 MG/ML 2 ML VIAL IV SLOW PU ONE (16:20)
--- NOTE | 2016-09-14 16:51 | ED ---
Headache - HPI Summary HPI Summary: Patient is a 30 y/o female who presents to ED for WELLS since 2 days ago which is located through the right temporal region, orbital and radiates to "teeth and right ears". Positive n/v last night. Negative fever, chills. Pt woke up with WELLS and was "worst of life" and "maximum at onset." Heat and palpation make WELLS worse. PMHx does include adrenal gland mass, HTN, migraine, but she states that this episode is different from prior WELLS due to higher intensity. Blood pressure of 181/99 is noted at triage. Recheck at 181/119. Positive FHx of aneurysm to paternal grandfather. Primary care involves Angeline Lim NP. Plan of care involving CT scan is discussed with pt and mother present at bedside, and they are currently agreeable. Nicardipine drip began d/t 181/119, but quickly reduced to 149/98 soon after inception. - History Of Current Complaint Chief Complaint: EDHeadache Stated Complaint: LT SIDE FACE/HEAD/EYE/EAR PAIN Time Seen by Provider: 09/14/16 11:36 Hx Obtained From: Patient Hx Last Menstrual Period: 09/16/15 Onset/Duration: Started hours ago Initially Headache Was: "Worst Headache Ever" Currently Pain Is: Current Pain Scale(0-10)= - 10 Timing: Constant Character: Sharp, Pressure Location of Headache: Temporal - right side only, Parietal Aggravating Factor: Position Change, Bright Lights Allevating Factors: Rest Associated Signs And Symptoms: Negative Related History: Similar Episode/DX As: - previous WELLS, but this one worse - Risk Factors SAH Risk Factors: Negative Meningitis Risk Factors: Negative SDH Risk Factors: Negative Temporal Arteritis Risk Factors: Female, - Allergies/Home Medications Allergies/Adverse Reactions: Allergies Allergy/AdvReac Type Severity Reaction Status Date / Time Fish Allergy Allergy Rash Verified 07/10/16 18:29 Hepatitis B Virus Vaccine Allergy Anaphylatic Verified 07/10/16 18:29 Shock Iodine Allergy Rash Verified 07/10/16 18:29 PMH/Surg Hx/FS Hx/Imm Hx Previously Healthy: Yes - HTN Endocrine/Hematology History: Denies: Hx Diabetes, Hx Thyroid Disease Cardiovascular History: Reports: Hx Hypertension - Adrenal mass, kidney mass Denies: Hx Pacemaker/ICD Respiratory History: Denies: Hx Asthma, Hx Chronic Obstructive Pulmonary Disease (COPD) GI History: Denies: Hx Ulcer Sensory History: Denies: Hx Contacts or Glasses, Hx Hearing Aid Opthamlomology History: Denies: Hx Contacts or Glasses Psychiatric History: Denies: Hx Panic Disorder - Surgical History Surgery Procedure, Year, and Place: 2 c-sect Hx Anesthesia Reactions: No - Immunization History Hx Pertussis Vaccination: No Immunizations Up to Date: Unable to Obtain/Confirm Infectious Disease History: No Infectious Disease History: Denies: Hx Hepatitis, Hx Human Immunodeficiency Virus (HIV), History Other Infectious Disease, Traveled Outside the [place] in Last 30 Days - Family History Known Family History: Negative: Seizure Disorder - Social History Occupation: Employed Full-time Lives: With Family Alcohol Use: None Hx Substance Use: No Substance Use Type: Reports: None Hx Tobacco Use: No Smoking Status (MU): Never Smoked Tobacco Do You Chew or Dip Tobacco: No Have You Chewed or Dipped Tobacco in the LAST YEAR: No Have You Smoked in the Last Year: No Review of Systems Constitutional: Negative Eyes: Negative ENT: Negative Cardiovascular: Negative Respiratory: Negative Positive: no symptoms reported, see HPI Skin: Negative Positive: Headache Psychological: Normal All Other Systems Reviewed And Are Negative: Yes Physical Exam - Summary Physical Exam Summary: Constitutional: Well-developed, Well-nourished, Alert. (-) Distressed. (+) Hyperagelsic. Skin: Warm, Dry HENT: Normocephalic; Atraumatic. Bilat ear normal with nml TMs. Positive percussive tenderness. Photophobic. Eyes: Conjunctiva normal Neck: Musculoskeletal ROM normal neck. (-) JVD, (-) Stridor, (-) Tracheal deviation Cardio: Rhythm regular, rate normal, Heart sounds normal; Intact distal pulses; The pedal pulses are 2+ and symmetric. Radial pulses are 2+ and symmetric. (-) Murmur Pulmonary/Chest wall: Effort normal. (-) Respiratory distress, (-) Wheezes, (-) Rales Abd: Soft, (-) Tenderness, (-) Distension, (-) Guarding, (-) Rebound Musculoskeletal: (-) Edema Lymph: (-) Cervical adenopathy Neuro: Alert, Oriented x3 Psych: Mood and affect Normal Triage Information Reviewed: Yes Vital Signs On Initial Exam: Initial Vitals Temp Pulse Resp BP Pulse Ox 98.2 F 72 20 181/119 98 09/14/16 11:01 09/14/16 11:01 09/14/16 11:01 09/14/16 11:01 09/14/16 11:01 Vital Signs Reviewed: Yes Appearance: Positive: Well-Appearing, Well-Nourished Skin: Positive: Warm, Skin Color Reflects Adequate Perfusion Head/Face: Positive: Normal Head/Face Inspection Eyes: Positive: Normal, EOMI, GREGORY Neck: Positive: Supple, Nontender, No Lymphadenopathy Respiratory/Lung Sounds: Positive: Clear to Auscultation, Breath Sounds Present Cardiovascular: Positive: Normal, RRR Musculoskeletal: Positive: Normal, Strength/ROM Intact Neurological: Positive: Normal, Sensory/Motor Intact, Alert, Oriented to Person Place, Time, CN Intact II-III, Reflexes Intact, Normal Gait, Speech Normal Psychiatric: Positive: Normal AVPU Assessment: Alert - Katie Coma Scale Best Eye Response: 4 - Spontaneous Best Motor Response: 6 - Obeys Commands Best Verbal Response: 5 - Oriented Coma Scale Total: 15 Diagnostics - Vital Signs Vital Signs Temp Pulse Resp BP Pulse Ox 09/14/16 16:10 86 15 96 09/14/16 16:05 89 20 97 09/14/16 16:00 83 18 159/116 97 09/14/16 15:55 72 20 97 09/14/16 15:50 73 18 97 09/14/16 15:45 73 20 97 09/14/16 15:40 71 18 97 09/14/16 15:35 74 17 97 09/14/16 15:30 74 19 167/104 97 09/14/16 15:25 73 19 97 09/14/16 15:20 69 19 96 09/14/16 15:15 79 18 97 09/14/16 15:10 72 18 97 09/14/16 15:05 75 19 97 09/14/16 15:00 86 16 168/111 97 09/14/16 14:55 71 18 97 09/14/16 14:50 75 18 97 09/14/16 14:45 76 18 97 09/14/16 14:40 78 18 98 09/14/16 14:35 81 16 98 09/14/16 14:30 86 17 174/109 98 09/14/16 14:25 89 18 98 09/14/16 14:20 95 13 98 09/14/16 14:15 100 14 99 09/14/16 14:10 90 11 98 09/14/16 14:05 88 12 98 09/14/16 14:00 85 17 180/115 97 09/14/16 13:58 86 17 170/106 98 09/14/16 13:55 89 18 97 09/14/16 13:50 97 16 97 09/14/16 13:45 94 17 98 09/14/16 13:40 94 12 97 09/14/16 13:35 95 17 98 09/14/16 13:30 98 14 167/104 98 09/14/16 13:25 108 13 97 09/14/16 13:23 107 16 97 09/14/16 13:22 143/89 09/14/16 12:38 100 09/14/16 12:17 98.2 F 98 20 181/119 98 09/14/16 11:01 98.2 F 72 20 181/119 98 - Laboratory Lab Results: Lab Results 09/14/16 09/14/16 09/14/16 Range/Units 12:20 12:20 12:20 WBC 7.0 (3.5-10.8) 10^3/ul RBC 5.35 (4.0-5.4) 10^6/ul Hgb 15.0 (12.0-16.0) g/dl Hct 46 (35-47) % MCV 85 (80-97) fL MCH 28 (27-31) pg MCHC 33 (31-36) g/dl RDW 19 H (10.5-15) % Plt Count 241 (150-450) 10^3/ul MPV 9 (7.4-10.4) um3 Neut % (Auto) 62.9 (38-83) % Lymph % (Auto) 30.8 (25-47) % Boundary % (Auto) 5.1 (1-9) % Eos % (Auto) 0.5 (0-6) % Baso % (Auto) 0.7 (0-2) % Absolute Neuts (auto) 4.4 (1.5-7.7) 10^3/ul Absolute Lymphs (auto) 2.2 (1.0-4.8) 10^3/ul Absolute Monos (auto) 0.4 (0-0.8) 10^3/ul Absolute Eos (auto) 0 (0-0.6) 10^3/ul Absolute Basos (auto) 0.1 (0-0.2) 10^3/ul Absolute Nucleated RBC 0.01 10^3/ul Nucleated RBC % 0.2 INR (Anticoag Therapy) 0.94 (0.89-1.11) APTT 30.3 (26.0-36.3) seconds Sodium 138 (133-145) mmol/L Potassium 3.1 L (3.5-5.0) mmol/L Chloride 97 L (101-111) mmol/L Carbon Dioxide 26 (22-32) mmol/L Anion Gap 15 H (2-11) mmol/L BUN 19 (6-24) mg/dL Creatinine 0.99 H (0.51-0.95) mg/dL Est GFR ( Amer) 85.3 (>60) Est GFR (Non-Af Amer) 66.3 (>60) BUN/Creatinine Ratio 19.2 (8-20) Glucose 77 (70-100) mg/dL Lactic Acid (0.5-2.0) mmol/L Calcium 10.2 (8.6-10.3) mg/dL Magnesium 2.3 (1.9-2.7) mg/dL Total Bilirubin 0.80 (0.2-1.0) mg/dL AST 16 (13-39) U/L ALT 17 (7-52) U/L Alkaline Phosphatase 65 (34-104) U/L Total Creatine Kinase 56 (10-223) U/L CK-MB (CK-2) 1.0 (0.6-6.3) ng/mL Myoglobin 12.6 L (14.3-65.8) ng/mL Troponin I 0.00 (<0.04) ng/mL B-Natriuretic Peptide ( - 100) pg/mL Total Protein 8.0 (6.4-8.9) g/dL Albumin 5.0 (3.2-5.2) g/dL Globulin 3.0 (2-4) g/dL Albumin/Globulin Ratio 1.7 (1-3) 09/14/16 09/14/16 Range/Units 12:20 12:20 WBC (3.5-10.8) 10^3/ul RBC (4.0-5.4) 10^6/ul Hgb (12.0-16.0) g/dl Hct (35-47) % MCV (80-97) fL MCH (27-31) pg MCHC (31-36) g/dl RDW (10.5-15) % Plt Count (150-450) 10^3/ul MPV (7.4-10.4) um3 Neut % (Auto) (38-83) % Lymph % (Auto) (25-47) % Boundary % (Auto) (1-9) % Eos % (Auto) (0-6) % Baso % (Auto) (0-2) % Absolute Neuts (auto) (1.5-7.7) 10^3/ul Absolute Lymphs (auto) (1.0-4.8) 10^3/ul Absolute Monos (auto) (0-0.8) 10^3/ul Absolute Eos (auto) (0-0.6) 10^3/ul Absolute Basos (auto) (0-0.2) 10^3/ul Absolute Nucleated RBC 10^3/ul Nucleated RBC % INR (Anticoag Therapy) (0.89-1.11) APTT (26.0-36.3) seconds Sodium (133-145) mmol/L Potassium (3.5-5.0) mmol/L Chloride (101-111) mmol/L Carbon Dioxide (22-32) mmol/L Anion Gap (2-11) mmol/L BUN (6-24) mg/dL Creatinine (0.51-0.95) mg/dL Est GFR ( Amer) (>60) Est GFR (Non-Af Amer) (>60) BUN/Creatinine Ratio (8-20) Glucose (70-100) mg/dL Lactic Acid 1.0 (0.5-2.0) mmol/L Calcium (8.6-10.3) mg/dL Magnesium (1.9-2.7) mg/dL Total Bilirubin (0.2-1.0) mg/dL AST (13-39) U/L ALT (7-52) U/L Alkaline Phosphatase (34-104) U/L Total Creatine Kinase (10-223) U/L CK-MB (CK-2) (0.6-6.3) ng/mL Myoglobin (14.3-65.8) ng/mL Troponin I (<0.04) ng/mL B-Natriuretic Peptide 55 ( - 100) pg/mL Total Protein (6.4-8.9) g/dL Albumin (3.2-5.2) g/dL Globulin (2-4) g/dL Albumin/Globulin Ratio (1-3) Result Diagrams: 09/14/16 12:20 09/14/16 12:20 Lab Statement: Any lab studies that have been ordered have been reviewed, and results considered in the medical decision making process. Headache Course/Dx - Course Course Of Treatment: Patient sent to CT - WNL. Thunderclap WELLS warranted CT. Hx of adrenal tumor, but r/o pheochromocytoma previously at grant officer visit. Labs WNL. WELLS reduced with meds given in ED. Dr. Mccann to do LP and patient agrees initially, but later d/t timing refused and wants to be discharged. Follow ups given. - Diagnoses Differential Diagnosis/HQI/PQRI: Meningitis, Migraine Provider Diagnoses: Thunderclap headache Discharge - Discharge Plan Condition: Stable Disposition: AGAINST MEDICAL ADVICE Patient Education Materials: Acute Headache (ED), Against Medical Advice (ED) Referrals: Angeline Lim NP [Primary Care Provider] - 2 Days
[2016-09-14] MEDS ORDERED: Metoclopramide TAB* 10 MG PO ONE (22:06)
[2016-09-14 22:20] VITALS: BP 140/87
== END 2016-09-14 22:20 | disposition left against medical advice (07) ==
LOC: ED 10:59
DX: G44.53 Primary thunderclap headache (principal)
CPT/HCPCS: 36415; 70450; 71010; 80053; 82550; 82553; 83605; 83735; 83874; 83880; 84484; 85025; 85610; 85730; 93005; 96365; 99284; A9270-GY; J1200

== ENCOUNTER 2016-10-02 08:00 | Day surgery (SDC) | payer OTHER ==
[~2016-10-02 08:00] MED LIST: Buffered Lidocaine 0.9% SYRIN* 5 ML/SYR SYRINGE INTRADERM ONE
[2016-10-02] MEDS ORDERED: Buffered Lidocaine 0.9% SYRIN* 5 ML/SYR SYRINGE ONE (08:17)
[2016-10-02] MEDS ORDERED: ceFOXitin 2 GM IVPREMIX* 2 GM/50 ML BAG ONE (08:17)
[2016-10-02 08:26] LABS: Manual Entry Verification ABI0007; UR Preg Internal Control QC Line Present
[2016-10-02] MEDS ORDERED: fentaNYL* 50 MCG/ML 2 ML VIAL (100 MCG VIAL) ONE ×2 (09:20→11:31)
[2016-10-02] MEDS ORDERED: Midazolam* 1 MG/ML 2 ML VIAL (2 MG) ONE (09:20)
[2016-10-02] MEDS ORDERED: Bupivacaine 0.25% W/EPI* 50 ML VIAL ONE (09:25)
[2016-10-02] MEDS ORDERED: Propofol* 10 MG/ML 20 ML BTL IV PUSH ONE (09:40)
[2016-10-02] MEDS ORDERED: Ketorolac INJ* 30 MG/ML 1 ML VIAL ONE (09:40)
[2016-10-02] MEDS ORDERED: Succinylcholine* 20 MG/ML 10 ML VIAL ONE (09:40)
[2016-10-02] MEDS ORDERED: Famotidine IV* 10 MG/ML 2 ML (20 mg) ONE (09:40)
[2016-10-02] MEDS ORDERED: Dexamethasone IV* 4 MG/ML 1 ML (4 MG) ONE (09:40)
[2016-10-02] MEDS ORDERED: Lidocaine 2% PF * 5 ML VIAL ONE (09:40)
[2016-10-02] MEDS ORDERED: Ondansetron INJ* 2 MG/ML VIAL ONE (09:52)
[2016-10-02] MEDS ORDERED: diPHENhydraMINE IV* 50 MG/ML 1 ml VIAL (BENADRYL) IV PRN (10:01)
[2016-10-02] MEDS ORDERED: Ondansetron INJ* 2 MG/ML VIAL IV PRN (10:01)
[2016-10-02] MEDS ORDERED: Acetaminophen TAB* 325 MG PO PRN (10:01)
[2016-10-02] MEDS ORDERED: HYDROcodone/ACETAMIN 5-325 MG* 1 TAB PO PRN (10:01)
[2016-10-02] MEDS ORDERED: PROCHLORPERAZINE INJ 5 MG/ML 2 ML VIAL IV PRN (10:01)
[2016-10-02] MEDS ORDERED: Desflurane* 240 ML INH ONE (10:23)
[2016-10-02] MEDS ORDERED: Silver Nitrate/Potassium Nitr* 1 EA STICK ONE (10:35)
[2016-10-02] MEDS ORDERED: oxyCODONE/Acetamin 5/325 MG* TAB ONE (11:05)
[2016-10-02] MEDS: fentaNYL* 50 MCG/ML 2 ML VIAL (100 MCG VIAL) IV PRN ×2 (11:33→11:56)
[2016-10-02 12:00] VITALS: BP 148/97
--- NOTE | 2016-10-03 10:41 | OP ---
DATE OF OPERATION: 10/02/16 [facility] DATE OF : 87 SURGEON: Radha Moreno MD BUGGY RUNNER: None. ANESTHESIOLOGIST: Dr. Short ANESTHESIA: General, endotracheal with local at incisional site. PRE-OP DIAGNOSIS: Desires permanent sterility. POST-OP DIAGNOSIS: Desires permanent sterility. OPERATIVE PROCEDURE: Laparoscopic bilateral tubal ligation. ESTIMATED BLOOD LOSS: Minimal. URINE OUTPUT: 150 mL of clear yellow urine. FLUIDS: 700 mL of crystalloid. FINDINGS: Revealed normal tubes and ovaries bilaterally, normal appearing uterus. No evidence of adhesions. Normal appearing bowel. Normal appearing liver edge. COMPLICATIONS: None apparent. DISPOSITION: Stable to recovery room. DESCRIPTION OF PROCEDURE: The patient was placed in dorsal lithotomy position. The abdomen was prepped and draped and the vagina was prepped with a dilute soapy solution. The patient after draping was identified with the universal protocol for correct procedure, position, and patient. The patient's legs were placed in the universal Estiven Stirrups prior to the prepping and draping. Self-cath was used to drain the bladder for 150 mL of clear yellow urine. Sterile speculum was inserted. Cervix was visualized on the anterior lip and a Hulka clamp was placed without difficulty. Sterile speculum was removed. Attention was then focused on the abdomen. 8 mL of 1% Marcaine was infused at the umbilicus and incision was made with an 11 scalpel blade. This was carried down through the fascia. Fascia was clamped with Waylon's and incised with Metzenbaum scissors. The corners were then tagged with 0 Polysorb. A Jackie trocar and trocar sheaths were inserted. The abdomen was insufflated once confirming excellent placement of the Jackie. At that point, a Kleppinger was used to coagulate both right and left tubes, were about approximately 3 cm block of tube. Both ovaries were noted to have a normal appearance and uterus was noted to have a normal appearance. There is no evidence of adhesions anteriorly or posteriorly. Kleppinger was removed. The remainder of the abdomen was noted to have a normal appearance. The bowel was noted to be normal with no adhesions. The liver had a normal appearance. Pneumoperitoneum was then released and the trocar was directly removed under visualization. The fascia was then reapproximated using 0 Polysorb in an interrupted fashion x1 and the stay sutures were ligated to each other for complete closure of the fascia. The skin was then reapproximated using a 4-0 Monocryl in a subcuticular fashion. Steri's were then applied. Hulka clamp was then removed. There was some bleeding noted from the Hulka site, which was hemostatic with sponge, forceps, pressure. Sponge, forceps were then removed. The patient was taken to recovery room in stable condition. All sponge, instrument, and blade counts were correct throughout the case. The patient tolerated the procedure well and went to the recovery room in stable condition. [id number]/[facility] #: [id number] [facility] HEALTHDavid
== END 2016-10-02 12:14 | disposition home or self-care (01) ==
LOC: OR 08:00
PROVIDERS: ATTEND Obstetrics & Gynecology
DX: Z30.2 Encounter for sterilization (principal); I10 Essential (primary) hypertension
CPT/HCPCS: 36415; 81025; 86850; 86900; 86901; A9270-GY; J0330; J0694; J1100; J1885; J2250; J2405; J2704; J3010

== ENCOUNTER 2017-09-29 17:48 | Emergency (ER) | payer MEDICAID, OTHER ==
[2017-09-29 18:06] VITALS: BP 185/121
[2017-09-29] MEDS ORDERED: Lidocaine 1% MPF* 2 ML VIAL INJ ONE (18:17)
[2017-09-29] MEDS ORDERED: Lidocaine 1%* 5 ML VIAL ONE (18:23)
--- NOTE | 2017-09-29 18:53 | ED ---
Skin Complaint - HPI Summary HPI Summary: 31-year-old female presents with potential abscess to right side of face. She had a cyst near her right eye for the past 6 years. She states over past 2 days had started to become red and developed edema of her eyelid and below her eye. She states that her eyelid have swollen so much over her eyes causing her to have a decrease in vision. She denies any photophobia. She denies any pain with eye movement. She denies any fevers. She denies any history of MRSA. She is currently breast-feeding. - History of Current Complaint Chief Complaint: UCEye Time Seen by Provider: 09/29/17 18:13 Stated Complaint: EYE SWELLING Hx Last Menstrual Period: 09/16/15 Pain Intensity: 6 - Additional Pertinent History Primary Care Physician: NEGAR - Allergy/Home Medications Allergies/Adverse Reactions: Allergies Allergy/AdvReac Type Severity Reaction Status Date / Time Fish Containing Products Allergy Rash Verified 09/29/17 17:53 hepatitis B virus vaccine Allergy Anaphylatic Verified 09/29/17 18:07 Shock iodine Allergy Rash Verified 09/29/17 17:53 PMH/Surg Hx/FS Hx/Imm Hx Endocrine/Hematology History: Denies: Hx Diabetes, Hx Thyroid Disease Cardiovascular History: Reports: Hx Hypertension - Adrenal mass, kidney mass Denies: Hx Pacemaker/ICD Respiratory History: Denies: Hx Asthma, Hx Chronic Obstructive Pulmonary Disease (COPD) GI History: Denies: Hx Ulcer, Other GI Disorders Sensory History: Denies: Hx Contacts or Glasses, Hx Hearing Aid Opthamlomology History: Denies: Hx Contacts or Glasses Neurological History: Reports: Hx Headaches, Hx Migraine - HX OF LAST EPISODE Psychiatric History: Denies: Hx Panic Disorder - Surgical History Surgery Procedure, Year, and Place: 2 c-sect Hx Anesthesia Reactions: No Infectious Disease History: No Infectious Disease History: Denies: Hx Hepatitis, Hx Human Immunodeficiency Virus (HIV), History Other Infectious Disease, Traveled Outside the [place] in Last 30 Days - Family History Known Family History: Negative: Seizure Disorder - Social History Alcohol Use: Occasionally Hx Substance Use: No Substance Use Type: Reports: None Hx Tobacco Use: No Smoking Status (MU): Never Smoked Tobacco Have You Smoked in the Last Year: No Review of Systems Negative: Fever Negative: Chest Pain Negative: Shortness Of Breath Positive: Other - cyst right eye All Other Systems Reviewed And Are Negative: Yes Physical Exam Triage Information Reviewed: Yes Vital Signs On Initial Exam: Initial Vitals Temp Pulse Resp BP Pulse Ox 98.3 F 68 16 185/121 100 09/29/17 17:58 09/29/17 17:58 09/29/17 17:58 09/29/17 17:58 09/29/17 17:58 Vital Signs Reviewed: Yes Appearance: Positive: Well-Appearing Skin: Positive: Other - 1cm by 2cm abscess near right eye with surrounding edema of right eyelid and below eye Head/Face: Positive: Normal Head/Face Inspection Eyes: Positive: Normal, EOMI - no pain, GREGORY, Conjunctiva Clear ENT: Positive: Pharynx normal Respiratory/Lung Sounds: Positive: Clear to Auscultation, Breath Sounds Present Cardiovascular: Positive: Normal, RRR Musculoskeletal: Positive: Normal Neurological: Positive: Normal Psychiatric: Positive: Normal Procedures - Incision and Drainage face Site: right side face Anesthesia: Local Instrument(s): Scalpel, Needle Diagnostics - Vital Signs Vital Signs Temp Pulse Resp BP Pulse Ox 09/29/17 17:58 98.3 F 68 16 185/121 100 - Laboratory Lab Statement: Any lab studies that have been ordered have been reviewed, and results considered in the medical decision making process. Course/Dx - Course Course Of Treatment: 31-year-old female presents with potential abscess to right side of face. She had a cyst near her right eye for the past 6 years. She states over past 2 days had started to become red and developed edema of her eyelid and below her eye. She states that her eyelid have swollen so much over her eyes causing her to have a decrease in vision. She denies any photophobia. She denies any pain with eye movement. She denies any fevers. She denies any history of MRSA. She is currently breast-feeding. on exam has 1cm by 2cm near right eye with edema of eyelid and below eye. performed I&D and got 3cc of pus and cystic material from abscess. will place on augmentin as will cover for periorbital cellulitis and is safe with breast feeding. told to place heat on area. patient understand and agrees with plan. - Differential Diagnoses - Skin Complaint Differential Diagnoses: Abscess, Cellulitis, Contact Dermatitis - Diagnoses Provider Diagnoses: Abscess Discharge - Sign-Out/Discharge Documenting (check all that apply): Patient Departure - Discharge Plan Condition: Good Disposition: HOME Prescriptions: Amoxicillin/Clavulanate TAB* [Augmentin TAB 875*] 875 mg PO BID #20 tab Patient Education Materials: Abscess (ED) Referrals: Amarilis Dumont [Primary Care Provider] - Additional Instructions: Take antibiotic twice a day for 10 days Apply warm compresses to area Take ibuprofen or Tylenol for pain every 6 hours Return to ED if develop fever, area of redness spreads, or any new or worsening symptoms - Billing Disposition and Condition Condition: GOOD Disposition: Home
== END 2017-09-29 19:05 | disposition home or self-care (01) ==
LOC: UCEAST 17:48
DX: L02.01 Cutaneous abscess of face (principal); I10 Essential (primary) hypertension; Z91.018 Allergy to other foods; Z88.7 Allergy status to serum and vaccine; Z88.8 Allergy status to other drugs, medicaments and biological substances
CPT/HCPCS: 67700; 87070; 87076; 87205; 87640; 87641; 99212; G0463

== ENCOUNTER 2017-12-28 20:55 | Emergency (ER) | payer OTHER ==
[2017-12-28 21:30] VITALS: BP 171/119
[2017-12-28] MEDS ORDERED: Amoxicillin/Clavulanate TAB* 875 MG PO ONE ×2 (21:57)
--- NOTE | 2017-12-28 21:58 | UC ---
Throat Pain/Nasal Justin HPI - HPI Summary HPI Summary: 32-year-old woman comes in with a chief complaint of sore throat fevers. This started with the last day. She reports she's had strep throat many times also feels like. She also has some rhinorrhea and loose cough. She is not a smoker. No dysuria or abdominal pain. She took ibuprofen which helped decrease her fever and later feel little better. - History of Current Complaint Chief Complaint: UCGeneralIllness Stated Complaint: SORE THROAT Time Seen by Provider: 12/28/17 21:48 Hx Last Menstrual Period: 09/16/15 Pain Intensity: 8 - Allergies/Home Medications Allergies/Adverse Reactions: Allergies Allergy/AdvReac Type Severity Reaction Status Date / Time Fish Containing Products Allergy Rash Verified 12/28/17 21:31 hepatitis B virus vaccine Allergy Anaphylatic Verified 12/28/17 21:31 Shock iodine Allergy Rash Verified 12/28/17 21:31 PMH/Surg Hx/FS Hx/Imm Hx Other Endocrine History: ADRENAL TUMOR Cardiovascular History: Hypertension - Surgical History Surgical History: Yes Surgery Procedure, Year, and Place: 2 c-sect - Family History Known Family History: Negative: Seizure Disorder - Social History Alcohol Use: None Substance Use Type: None Smoking Status (MU): Never Smoked Tobacco Have You Smoked in the Last Year: No - Immunization History Most Recent Influenza Vaccination: 12/2014 Most Recent Tetanus Shot: UTD Most Recent Pneumonia Vaccination: never Review of Systems Constitutional: Fever Skin: Negative Eyes: Negative ENT: Sore Throat, Nasal Discharge Respiratory: Cough Cardiovascular: Negative Gastrointestinal: Negative Genitourinary: Negative Motor: Negative Neurovascular: Negative Musculoskeletal: Negative Neurological: Negative Psychological: Negative Is Patient Immunocompromised?: No All Other Systems Reviewed And Are Negative: Yes Physical Exam Triage Information Reviewed: Yes Appearance: No Pain Distress, Well-Nourished, Ill-Appearing - MILD Vital Signs: Initial Vital Signs Temp 100.0 F 12/28/17 21:25 Pulse 101 12/28/17 21:25 Resp 16 12/28/17 21:25 BP 171/119 12/28/17 21:25 Pulse Ox 100 12/28/17 21:25 Vital Signs Reviewed: Yes Eye Exam: Normal Eyes: Positive: Conjunctiva Clear ENT: Positive: Pharyngeal erythema - Tonsils 2+ bilaterally, Nasal congestion, Nasal drainage, TMs normal, Uvula midline Neck exam: Normal Neck: Positive: Supple Respiratory: Positive: Lungs clear, Normal breath sounds, No respiratory distress Cardiovascular: Positive: Tachycardia Musculoskeletal Exam: Normal Musculoskeletal: Positive: Strength Intact, ROM Intact Neurological Exam: Normal Neurological: Positive: Alert, Muscle Tone Normal Psychological Exam: Normal Psychological: Positive: Age Appropriate Behavior Skin Exam: Normal Throat Pain/Nasal Course/Dx - Course Course Of Treatment: DISCUSSED VIRAL VERSES BACTERIAL INFECTION AND THE ROLE OF ANTIBIOTICS. THE PATIENT WISHES TO BE ON ANTIBIOTICS AT THIS TIME. - Differential Dx/Diagnosis Provider Diagnoses: PHARYNGITIS. FEVER Discharge - Sign-Out/Discharge Documenting (check all that apply): Patient Departure All imaging exams completed and their final reports reviewed: No Studies - Discharge Plan Condition: Stable Disposition: HOME Prescriptions: Amoxicillin/Clavulanate TAB* [Augmentin TAB 875*] 875 mg PO BID #18 tab Patient Education Materials: Pharyngitis (ED) Referrals: Amarilis Dumont [Primary Care Provider] - Additional Instructions: FOLLOW UP WITH YOUR DOCTOR IF NOT COMPLETELY IMPROVED. GET RECHECKED FOR ANY WORSENING OF YOUR CONDITION OR QUESTIONS OR CONCERNS. - Billing Disposition and Condition Condition: STABLE Disposition: Home
== END 2017-12-28 22:00 | disposition home or self-care (01) ==
LOC: UCEAST 20:55
DX: J02.9 Acute pharyngitis, unspecified (principal); R50.9 Fever, unspecified; I10 Essential (primary) hypertension; Z88.7 Allergy status to serum and vaccine; Z88.8 Allergy status to other drugs, medicaments and biological substances; Z91.013 Allergy to seafood
CPT/HCPCS: 87651; 99213; A9270-GY; G0463

== ENCOUNTER 2018-05-09 15:59 | Emergency (ER) | payer OTHER ==
[2018-05-09 17:19] LABS: Hematocrit 43 % (35-47); Hemoglobin 14.3 g/dl (12.0-16.0); Mean Corpuscular HGB Conc 34 g/dl (31-36); Mean Corpuscular Hemoglobin 29 pg (27-31); Mean Corpuscular Volume 86 fL (80-97); Mean Platelet Volume 9.1 fL (7.4-10.4); Platelet Count 210 10^3/ul (150-450); Red Blood Count 4.98 10^6/ul (4.00-5.40); Red Cell Distribution Width 13 % (10.5-15); White Blood Count 3.8 10^3/ul (3.5-10.8)
[2018-05-09] MEDS ORDERED: Metoclopramide IV* 5 MG/ML 2 ML VIAL IV SLOW PU ONE (17:24)
[2018-05-09] MEDS ORDERED: Metoprolol Tartrate IV* 1 MG/ML 5 ML VIAL IV ONE ×2 (17:24→18:00)
[2018-05-09] MEDS ORDERED: NS 0.9% 1000 ML** 1,000 ML IV ONE (17:25)
[2018-05-09 17:40] LABS: ABS Basophils 0.1 10^3/ul (0-0.2); ABS Eosinophils 0 10^3/ul (0-0.6); ABS Lymphocytes 1.2 10^3/ul (1.0-4.8); ABS Monocytes 0.2 10^3/ul (0-0.8); ABS Neutrophils 2.3 10^3/ul (1.5-7.7); ABS Nucleated RBC 0 10^3/ul; Eosinophil % 0.4 %; Lymphocyte % 32.3 %; Nucleated Red Blood Cells % 0
[2018-05-09 17:42] LABS: Albumin 4.8 g/dL (3.2-5.2); Albumin/Globulin Ratio 1.9 (1-3); BUN/Creatinine Ratio 8.2 (8-20); Calcium 9.4 mg/dL (8.6-10.3); EGFR African American 112.5 (>60); Globulin 2.5 g/dL (2-4); Potassium 3.5 mmol/L (3.5-5.0); Total Bilirubin 0.7 mg/dL (0.2-1.0); Total Protein 7.3 g/dL (6.4-8.9)
--- NOTE | 2018-05-09 17:56 | ED ---
Headache - HPI Summary HPI Summary: Pt is a 32 y/o F presenting to the ED with a chief complaint of high blood pressure. She reports this morning she had the aura of a migraine, then her chest started getting tight, so she checked her blood pressure and it was higher than normal and her HR was 43. She reports chest tightness, R eye twitching, diarrhea yesterday, hx of migraines, and a hx of a mass on her adrenal gland. She usually gets visual changes with migraines, but she usually gets hypertensive because of the migraines, rather than hypertension causing the migraines. Pt denies any fever, chills, erythema of eyes, sore throat, SOB, cough, abdominal pain, N/V, dysuria, hematuria, myalgia, edema, rash, or dizziness. - History Of Current Complaint Chief Complaint: EDHypertension Stated Complaint: HIGH BP Time Seen by Provider: 05/09/18 17:15 Hx Obtained From: Patient Hx Last Menstrual Period: 09/16/15 Onset/Duration: Sudden Onset, Started hours ago, Still Present Initially Headache Was: Moderate Currently Pain Is: Moderate Timing: Constant, Hours Character: Migraine Location of Headache: Diffuse Aggravating Factor: Nothing Allevating Factors: Nothing Associated Signs And Symptoms: Visual Changes - R eye twitch, Other (Noted In Comments) - high blood pressure, chest tightness, diarrhea - Allergies/Home Medications Allergies/Adverse Reactions: Allergies Allergy/AdvReac Type Severity Reaction Status Date / Time Fish Containing Products Allergy Rash Verified 05/09/18 14:45 hepatitis B virus vaccine Allergy Anaphylatic Verified 05/09/18 14:45 Shock iodine Allergy Rash Verified 05/09/18 14:45 PMH/Surg Hx/FS Hx/Imm Hx Previously Healthy: No Endocrine/Hematology History: Denies: Hx Diabetes, Hx Thyroid Disease Cardiovascular History: Reports: Hx Hypertension - Adrenal mass, kidney mass Denies: Hx Pacemaker/ICD Respiratory History: Denies: Hx Asthma, Hx Chronic Obstructive Pulmonary Disease (COPD) GI History: Denies: Hx Ulcer - hx 2017, Other GI Disorders Sensory History: Denies: Hx Contacts or Glasses, Hx Hearing Aid Opthamlomology History: Denies: Hx Contacts or Glasses Neurological History: Reports: Hx Headaches, Hx Migraine - HX OF LAST EPISODE Psychiatric History: Denies: Hx Panic Disorder - Surgical History Surgery Procedure, Year, and Place: 3 c-sect Hx Anesthesia Reactions: No Infectious Disease History: No Infectious Disease History: Denies: Hx Hepatitis, Hx Human Immunodeficiency Virus (HIV), History Other Infectious Disease, Traveled Outside the [place] in Last 30 Days - Family History Known Family History: Negative: Seizure Disorder - Social History Alcohol Use: Occasionally Hx Substance Use: No Substance Use Type: Reports: None Hx Tobacco Use: No Smoking Status (MU): Never Smoked Tobacco Have You Smoked in the Last Year: No Review of Systems Negative: Fever, Chills Eyes: Other - R eye twitching Negative: Erythema Negative: Sore Throat Positive: Chest Pain Negative: Shortness Of Breath, Cough Negative: Abdominal Pain, Vomiting, Nausea Negative: dysuria, hematuria Negative: Myalgia, Edema Negative: Rash Neurological: Negative - dizziness Positive: Headache All Other Systems Reviewed And Are Negative: Yes Physical Exam - Summary Physical Exam Summary: Constitutional: Well-developed, Well-nourished, Alert. (-) Distressed Skin: Warm, Dry HENT: Normocephalic; Atraumatic Eyes: Conjunctiva normal Neck: Musculoskeletal ROM normal neck. (-) JVD, (-) Stridor, (-) Tracheal deviation Cardio: Rhythm regular, rate normal, Heart sounds normal; Intact distal pulses; The pedal pulses are 2+ and symmetric. Radial pulses are 2+ and symmetric. (-) Murmur Pulmonary/Chest wall: Effort normal. (-) Respiratory distress, (-) Wheezes, (-) Rales Abd: Soft. (-) Tenderness, (-) Distension, (-) Guarding, (-) Rebound Musculoskeletal: (-) Edema Lymph: (-) Cervical adenopathy Neuro: Alert, Oriented x3, Strength normal, Cranial nerves II-XII are grossly intact. (-) Dysmetria, (-) Nystagmus, (-) Ataxia by finger to nose testing, (-) Sensory deficit. Psych: Mood and affect Normal Triage Information Reviewed: Yes Vital Signs On Initial Exam: Initial Vitals Temp Pulse Resp BP Pulse Ox 97.5 F 79 18 193/126 99 05/09/18 16:06 05/09/18 16:06 05/09/18 16:06 05/09/18 16:06 05/09/18 16:06 Vital Signs Reviewed: Yes Diagnostics - Vital Signs Vital Signs Temp Pulse Resp BP Pulse Ox 05/09/18 17:49 78 17 178/115 100 05/09/18 17:44 65 18 170/122 100 05/09/18 17:19 84 17 188/129 99 05/09/18 17:18 84 17 100 05/09/18 16:06 97.5 F 79 18 193/126 99 - Laboratory Lab Results: Lab Results 05/09/18 05/09/18 05/09/18 Range/Units 17:12 17:12 17:12 WBC 3.8 (3.5-10.8) 10^3/ul RBC 4.98 (4.00-5.40) 10^6/ul Hgb 14.3 (12.0-16.0) g/dl Hct 43 (35-47) % MCV 86 (80-97) fL MCH 29 (27-31) pg MCHC 34 (31-36) g/dl RDW 13 (10.5-15) % Plt Count 210 (150-450) 10^3/ul MPV 9.1 (7.4-10.4) fL Neut % (Auto) 61.0 % Lymph % (Auto) 32.3 % Yancey % (Auto) 5.0 % Eos % (Auto) 0.4 % Baso % (Auto) 1.3 % Absolute Neuts (auto) 2.3 (1.5-7.7) 10^3/ul Absolute Lymphs (auto) 1.2 (1.0-4.8) 10^3/ul Absolute Monos (auto) 0.2 (0-0.8) 10^3/ul Absolute Eos (auto) 0 (0-0.6) 10^3/ul Absolute Basos (auto) 0.1 (0-0.2) 10^3/ul Absolute Nucleated RBC 0 10^3/ul Nucleated RBC % 0 Sodium 139 (135-145) mmol/L Potassium 3.5 (3.5-5.0) mmol/L Chloride 104 (101-111) mmol/L Carbon Dioxide 27 (22-32) mmol/L Anion Gap 8 (2-11) mmol/L BUN 6 (6-24) mg/dL Creatinine 0.73 (0.51-0.95) mg/dL Est GFR ( Amer) 112.5 (>60) Est GFR (Non-Af Amer) 93.0 (>60) BUN/Creatinine Ratio 8.2 (8-20) Glucose 91 (70-100) mg/dL Lactic Acid 0.9 (0.5-2.0) mmol/L Calcium 9.4 (8.6-10.3) mg/dL Total Bilirubin 0.70 (0.2-1.0) mg/dL AST 15 (13-39) U/L ALT 12 (7-52) U/L Alkaline Phosphatase 46 (34-104) U/L Troponin I 0.00 (<0.04) ng/mL Total Protein 7.3 (6.4-8.9) g/dL Albumin 4.8 (3.2-5.2) g/dL Globulin 2.5 (2-4) g/dL Albumin/Globulin Ratio 1.9 (1-3) Result Diagrams: 05/09/18 17:12 05/09/18 17:12 Lab Statement: Any lab studies that have been ordered have been reviewed, and results considered in the medical decision making process. - EKG 1628 Cardiac Rate: NL - 68bpm EKG Rhythm: Sinus Rhythm ST Segment: Normal Ectopy: None Summary of EKG Findings: No STEMI. Re-Evaluation - Re-Evaluation 1st re-eval Re-Evaluation Time: 18:15 Change: Improved Comment: Pt states she feels somewhat better and that her chest pain is resolved. Her BP is down to 139 systolic, and her R eye is still somewhat splotchy but she states this is normal for her migraines. 2nd re-eval Re-Evaluation Time: 18:59 Change: Improved Comment: Pt states that her R visual disturbance has not resolved, and her BP is now in the 180s. The pt will be signed out to Dr. Stewart pending therapeutic intervention. Third Eval Re-Evaluation Time: 20:31 Change: Improved Comment: Patient reports that she is feeling better. She was advised to increase her labetalol from 100 mg BID to 200 mg BID and to take her nightly dose when she returns home. She will follow up with PCP in 1-2 days, patient is agreeable with this plan. Headache Course/Dx - Course Course Of Treatment: Pt is a 32 y/o F presenting to the ED with a chief complaint of high blood pressure. She reports this morning she had the aura of a migraine, then her chest started getting tight, so she checked her blood pressure and it was higher than normal and her HR was 43. She reports chest tightness, R eye twitching, diarrhea yesterday, hx of migraines, and a hx of a mass on her adrenal gland. She usually gets visual changes with migraines, but she usually gets hypertensive because of the migraines, rather than hypertension causing the migraines. Pt denies any fever, chills, erythema of eyes, sore throat, SOB, cough, abdominal pain, N/V, dysuria, hematuria, myalgia , edema, rash, or dizziness. As of 1814, pt states she feels somewhat better and that her chest pain is resolved. Her BP is down to 139 systolic, and her R eye is still somewhat splotchy but she states this is normal for her migraines. Pt states that her R visual disturbance has not resolved, and her BP is now in the 180s. The pt will be signed out to Dr. Stewart pending therapeutic intervention. - Diagnoses Provider Diagnoses: Headache, HTN (hypertension) Discharge - Sign-Out/Discharge Documenting (check all that apply): Patient Departure, Sign-Out Patient Signing out patient TO: Reyes Stewart - Discharge Plan Condition: Stable Disposition: HOME Patient Education Materials: Hypertension (ED), General Headache (ED) Referrals: Amarilis Dumont [Primary Care Provider] - 2 Days Additional Instructions: YOU ARE ADVISED TO INCREASE YOUR LABETALOL FROM 100 MG TWICE DAILY TO 2OO MG TWICE DAILY. TAKE YOUR NIGHTLY DOSE WHEN YOU RETURN HOME. RETURN TO THE EMERGENCY DEPARTMENT FOR CHANGING OR WORSENING SYMPTOMS. FOLLOW UP WITH PRIMARY CARE PHYSICIAN IN 1-2 DAYS. - Billing Disposition and Condition Condition: STABLE Disposition: Home - Attestation Statements Document Initiated by Ermelindaibe: Yes Documenting Scribe: Danya Schuler Provider For Whom Álvaro is Documenting (Include Credential): Ajay Mccann MD. Scribe Attestation: Danya Echevarria, scribed for Ajay Mccann MD. on 05/13/18 at 1043. Scribe Documentation Reviewed: Yes Provider Attestation: The documentation as recorded by the Danya tejada accurately reflects the service I personally performed and the decisions made by me, Ajay Mccann MD. Status of Scribe Document: Viewed
[2018-05-09 17:59] LABS: Urine Appearance Clear; Urine Bilirubin Negative (Negative); Urine Blood Negative (Negative); Urine Color Straw; Urine Glucose Negative (Negative); Urine Ketones Negative (Negative); Urine Nitrite Negative (Negative); Urine Protein Negative (Negative); Urine Specific Gravity 1.005 (1.010-1.030); Urine Urobilinogen Negative (Negative)
[2018-05-09] MEDS ORDERED: diPHENhydraMINE IV* 50 MG/ML 1 ml VIAL (BENADRYL) SLOW PUSH ONE (18:17)
[2018-05-09] MEDS ORDERED: Dexamethasone IV* 4 MG/ML 1 ML (4 MG) IV SLOW PU ONE (18:17)
[2018-05-09] MEDS ORDERED: Ketorolac INJ* 30 MG/ML 1 ML VIAL IV PUSH ONE (18:17)
[2018-05-09] MEDS ORDERED: Metoprolol Tartrate TAB* 25 MG PO ONE (18:18)
[2018-05-09] MEDS ORDERED: Magnesium Sulfate 2 GM IV* 2 GM/50 ML BAG IVPB ONE (18:59)
--- NOTE | 2018-05-09 19:15 | ED ---
Progress - Progress Note Progress Note: Patient is received as a sign-out from Dr. Mccann to Dr. Stewart at 0 05/09/18 shift change pending therapeutic intervention. Per triage, "Pt states she was at work at [employer] and had HTN and CP. Pt sates BP 220/130. Pt had EKG which she said was normal and took 325 mg ASA. Pt states vision in rt eye is blochy." Re-Evaluation - Re-Evaluation 1st re-eval Re-Evaluation Time: 18:15 Change: Improved Comment: Pt states she feels somewhat better and that her chest pain is resolved. Her BP is down to 139 systolic, and her R eye is still somewhat splotchy but she states this is normal for her migraines. 2nd re-eval Re-Evaluation Time: 18:59 Change: Improved Comment: Pt states that her R visual disturbance has not resolved, and her BP is now in the 180s. The pt will be signed out to Dr. Stewart pending therapeutic intervention. Third Eval Re-Evaluation Time: 20:31 Change: Improved Comment: Patient reports that she is feeling better. She was advised to increase her labetalol from 100 mg BID to 200 mg BID and to take her nightly dose when she returns home. She will follow up with PCP in 1-2 days, patient is agreeable with this plan. Course/Dx - Course Course Of Treatment: Patient is received as a sign-out from Dr. Mccann to Dr. Stewart at 0 05/09/18 shift change pending therapeutic intervention. Per triage , "Pt states she was at work at [employer] and had HTN and CP. Pt sates BP 220/130. Pt had EKG which she said was normal and took 325 mg ASA. Pt states vision in rt eye is blochy.". 2030 - Patient reports that she is feeling better. She was advised to increase her labetalol from 100 mg BID to 200 mg BID and to take her nightly dose when she returns home. She will follow up with PCP in 1-2 days, patient is agreeable with this plan. - Diagnoses Provider Diagnoses: Headache, HTN (hypertension) Discharge - Sign-Out/Discharge Documenting (check all that apply): Patient Departure - discharge Patient Received Moderate/Deep Sedation with Procedure: No - NO PROCEDURES DONE - Discharge Plan Condition: Stable Disposition: HOME Patient Education Materials: Hypertension (ED), General Headache (ED) Referrals: Amarilis Dumont [Primary Care Provider] - 2 Days Additional Instructions: YOU ARE ADVISED TO INCREASE YOUR LABETALOL FROM 100 MG TWICE DAILY TO 2OO MG TWICE DAILY. TAKE YOUR NIGHTLY DOSE WHEN YOU RETURN HOME. RETURN TO THE EMERGENCY DEPARTMENT FOR CHANGING OR WORSENING SYMPTOMS. FOLLOW UP WITH PRIMARY CARE PHYSICIAN IN 1-2 DAYS. - Attestation Statements Document Initiated by Scribe: Yes Documenting Scribe: AMINAH VAZ Provider For Whom Álvaro is Documenting (Include Credential): NEENA STEWART MD Scribe Attestation: IAMINAH, scribed for NEENA STEWART MD on 05/09/18 at 2039. Status of Scribe Document: Ready
[2018-05-09 21:09] VITALS: BP 138/93
== END 2018-05-09 21:09 | disposition home or self-care (01) ==
LOC: ED 15:59
DX: G43.109 Migraine with aura, not intractable, without status migrainosus (principal); I10 Essential (primary) hypertension; R07.89 Other chest pain; R19.7 Diarrhea, unspecified; N28.89 Other specified disorders of kidney and ureter; Z88.7 Allergy status to serum and vaccine; Z91.013 Allergy to seafood
CPT/HCPCS: 36415; 71045; 80053; 81003; 83605; 84484; 85025; 93005; 96361; 96365; 96375; 99284; J1100; J1200; J1885; J2765; J3475; J3490

== ENCOUNTER 2018-06-20 16:07 | Emergency (ER) | payer OTHER ==
--- NOTE | 2018-06-20 16:11 | UC ---
Throat Pain/Nasal Justin HPI - HPI Summary HPI Summary: 32 yo female presents with sore throat since this morning. She has a niece that she has been around a lot recently who tested positive for strep - per pt. She has not taken anything OTC for her symptoms. She is eating and drinking well. Denies fever, chills, sinus symptoms, cough, rash. - History of Current Complaint Stated Complaint: SORE THROAT Time Seen by Provider: 06/20/18 16:08 Hx Obtained From: Patient Hx Last Menstrual Period: 09/16/15 Onset/Duration: Sudden Onset Severity: Mild Pain Intensity: 3 Pain Scale Used: 0-10 Numeric - Allergies/Home Medications Allergies/Adverse Reactions: Allergies Allergy/AdvReac Type Severity Reaction Status Date / Time Fish Containing Products Allergy Rash Verified 06/20/18 16:20 hepatitis B virus vaccine Allergy Anaphylatic Verified 06/20/18 16:20 Shock iodine Allergy Rash Verified 06/20/18 16:20 PMH/Surg Hx/FS Hx/Imm Hx - Additional Past Medical History Additional PMH: Adrenal tumor Cardiovascular History: Hypertension - Surgical History Surgical History: Yes Surgery Procedure, Year, and Place: 3 c-sect - Family History Known Family History: Negative: Seizure Disorder - Social History Occupation: Employed Full-time Lives: With Family Alcohol Use: Occasionally Substance Use Type: None Smoking Status (MU): Never Smoked Tobacco Have You Smoked in the Last Year: No - Immunization History Most Recent Influenza Vaccination: 12/2014 Most Recent Tetanus Shot: UTD Most Recent Pneumonia Vaccination: never Review of Systems All Other Systems Reviewed And Are Negative: Yes Constitutional: Positive: Negative Skin: Positive: Negative Eyes: Positive: Negative ENT: Positive: Sore Throat Respiratory: Positive: Negative Cardiovascular: Positive: Negative Gastrointestinal: Positive: Negative Neurological: Positive: Negative Psychological: Positive: Negative Physical Exam - Summary Physical Exam Summary: GENERAL: NAD. WDWN. No pain distress. SKIN: No rashes, sores, lesions, or open wounds. HEENT: Head: AT/NC Eyes: EOM intact. Conjunctiva clear without inflammation or discharge. Ears: Hearing grossly normal. TMs intact, no bulging, erythema, or edema. Nose: Nasal mucosa pink and moist. NTTP maxillary and frontal sinus. Throat: Posterior oropharynx without exudates, erythema, or tonsillar enlargement. Uvula midline. NECK: Supple. Mild tonsillar LAD without tenderness. CHEST: CTAB. No r/r/w. No accessory muscle use. Breathing comfortably and in no distress. CV: RRR. Without m/r/g. Pulses intact. Cap refill <2seconds NEURO: Alert. PSYCH: Age appropriate behavior. Triage Information Reviewed: Yes Vital Signs: Vital Signs: Temp Pulse Resp BP Pulse Ox 98.3 F 66 18 170/100 100 06/20/18 16:16 06/20/18 16:16 06/20/18 16:16 06/20/18 16:19 06/20/18 16:16 Vital Signs Reviewed: Yes Throat Pain/Nasal Course/Dx - Course Course Of Treatment: POC strep negative. Suspect pharyngitis. 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 - Differential Dx/Diagnosis Provider Diagnosis: Sore throat Discharge - Sign-Out/Discharge Documenting (check all that apply): Patient Departure All imaging exams completed and their final reports reviewed: No Studies - Discharge Plan Condition: Stable Disposition: HOME Prescriptions: Amoxicillin PO (*) [Amoxicillin 500 MG CAP*] 500 mg PO Q12H #14 cap Patient Education Materials: Pharyngitis (ED) Forms: *Work Release Referrals: Amarilis Dumont [Primary Care Provider] - Additional Instructions: If you develop a fever, shortness of breath, chest pain, new or worsening symptoms - please call your PCP or go to the ED. Your blood pressure was high at todays visit. Please see your primary provider within 4 weeks for recheck and re-evaluation. - Billing Disposition and Condition Condition: STABLE Disposition: Home - Attestation Statements Provider Attestation: I was available for consult. This patient was seen by the [facility]. The patient was not presented to, seen by, or examined by me. -Wilma
[2018-06-20 16:20] VITALS: BP 170/100
== END 2018-06-20 16:45 | disposition home or self-care (01) ==
LOC: UCEAST 16:07
DX: J02.9 Acute pharyngitis, unspecified (principal); E27.9 Disorder of adrenal gland, unspecified; I10 Essential (primary) hypertension; Z88.7 Allergy status to serum and vaccine; Z88.3 Allergy status to other anti-infective agents; Z91.013 Allergy to seafood
CPT/HCPCS: 87651; 99212; G0463

== ENCOUNTER 2019-02-03 08:36 | Emergency (ER) | payer OTHER ==
[2019-02-03 08:46] VITALS: BP 162/111
--- NOTE | 2019-02-03 08:58 | UC ---
Respiratory Complaint HPI - HPI Summary HPI Summary: She reports sinus pressure for the past 3 weeks or so that she attributed to the change in weather. In the last day or so she's developed a cough and a heavy chest. - History of Current Complaint Chief Complaint: UCGeneralIllness Stated Complaint: COUGH Time Seen by Provider: 02/03/19 08:47 Hx Obtained From: Patient Hx Last Menstrual Period: just finished Onset/Duration: Gradual Onset Timing: Constant Severity Initially: Mild Severity Currently: Mild Pain Intensity: 3 Character: Cough: Productive Associated Signs And Symptoms: Positive: Nasal Congestion - Allergies/Home Medications Allergies/Adverse Reactions: Allergies Allergy/AdvReac Type Severity Reaction Status Date / Time Fish Containing Products Allergy Rash Verified 02/03/19 08:46 hepatitis B virus vaccine Allergy Anaphylatic Verified 02/03/19 08:46 Shock iodine Allergy Rash Verified 02/03/19 08:46 Home Medications: Home Medications Labetalol TAB* [Trandate TAB*] 200 mg PO BID 02/03/19 [History Confirmed ] PMH/Surg Hx/FS Hx/Imm Hx Previously Healthy: Yes - she reports a tumor that causes her to have high blood pressure - Surgical History Surgical History: Yes Surgery Procedure, Year, and Place: 3 c-sections - Family History Known Family History: Negative: Seizure Disorder - Social History Alcohol Use: None Substance Use Type: None Smoking Status (MU): Never Smoked Tobacco Have You Smoked in the Last Year: No - Immunization History Most Recent Influenza Vaccination: 12/2014 Most Recent Tetanus Shot: UTD Most Recent Pneumonia Vaccination: never Review of Systems All Other Systems Reviewed And Are Negative: Yes Constitutional: Positive: Negative Skin: Positive: Negative ENT: Positive: Sinus Pain/Tenderness Respiratory: Positive: Cough Physical Exam - Summary Physical Exam Summary: She is nontoxic in appearance with stable vital signs aside from her blood pressure Triage Information Reviewed: Yes Appearance: Well-Appearing, No Pain Distress Vital Signs: Initial Vital Signs Temp 98.8 F 02/03/19 08:41 Pulse 92 02/03/19 08:41 Resp 16 02/03/19 08:41 BP 162/111 02/03/19 08:41 Pulse Ox 100 02/03/19 08:41 Vital Signs Reviewed: Yes Eye Exam: Normal ENT: Positive: Pharyngeal erythema, Nasal congestion, Sinus tenderness - Her sinuses transilluminate well Neck: Positive: Supple, Nontender, No Lymphadenopathy Respiratory: Positive: Lungs clear, Normal breath sounds, No respiratory distress, No accessory muscle use Cardiovascular Exam: Normal Respiratory Course/Dx - Course Course Of Treatment: This is likely a viral URI and I will treat symptomatically with guaifenesin with codeine. She has a PCP to follow up with but they are closed today after the holiday - Differential Dx/Diagnosis Provider Diagnosis: URI (upper respiratory infection) Discharge ED - Sign-Out/Discharge Documenting (check all that apply): Patient Departure All imaging exams completed and their final reports reviewed: No Studies - Discharge Plan Condition: Stable Disposition: HOME Patient Education Materials: Upper Respiratory Infection (ED) Referrals: No Primary Care Phys,NOPCP [Primary Care Provider] - - Billing Disposition and Condition Condition: STABLE Disposition: Home
== END 2019-02-03 09:09 | disposition home or self-care (01) ==
LOC: UCEAST 08:36
DX: J06.9 Acute upper respiratory infection, unspecified (principal); R03.0 Elevated blood-pressure reading, without diagnosis of hypertension; Z88.7 Allergy status to serum and vaccine; Z91.013 Allergy to seafood; Z91.09 Other allergy status, other than to drugs and biological substances
CPT/HCPCS: 99212; G0463

== ENCOUNTER 2019-02-13 16:40 | Emergency (ER) | payer OTHER ==
[2019-02-13 16:54] VITALS: BP 186/124
--- NOTE | 2019-02-13 17:07 | UC ---
Throat Pain/Nasal Justin HPI - HPI Summary HPI Summary: 33-year-old woman comes in with a chief complaint of upper respiratory tract infection symptoms for one month. Started with a runny nose times gone into her chest the last 2 weeks. She reports yellow-green rhinorrhea and sputum and chest congestion. Occasional wheezing. She does not have a history of asthma. She tried some [id number] medications which did not help much with her symptoms. Her chest feels tight. - History of Current Complaint Chief Complaint: UCRespiratory Stated Complaint: URI Time Seen by Provider: 02/13/19 16:59 Hx Last Menstrual Period: just finished Pain Intensity: 3 - Allergies/Home Medications Allergies/Adverse Reactions: Allergies Allergy/AdvReac Type Severity Reaction Status Date / Time Fish Containing Products Allergy Rash Verified 02/13/19 16:54 hepatitis B virus vaccine Allergy Anaphylatic Verified 02/13/19 16:54 Shock iodine Allergy Rash Verified 02/13/19 16:54 Home Medications: Home Medications Acetaminophen TAB* [Tylenol TAB*] 1,000 mg PO Q6H PRN 02/13/19 [History Confirmed 02/13/19] Ibuprofen TAB* [Motrin TAB* 600 MG] 600 mg PO Q6H PRN 02/13/19 [History Confirmed 02/13/19] Phenylephrine/Dm/Acetaminop/GG [Tylenol Cold-Flu Severe Caplet] 1 each PO Q6H [History Confirmed 02/13/19] PMH/Surg Hx/FS Hx/Imm Hx Previously Healthy: Yes Cardiovascular History: Hypertension - Surgical History Surgical History: Yes Surgery Procedure, Year, and Place: 3 c-sections - Family History Known Family History: Positive: Non-Contributory Negative: Seizure Disorder - Social History Alcohol Use: None Substance Use Type: None Smoking Status (MU): Never Smoked Tobacco Have You Smoked in the Last Year: No - Immunization History Most Recent Influenza Vaccination: 12/2014 Most Recent Tetanus Shot: UTD Most Recent Pneumonia Vaccination: never Review of Systems All Other Systems Reviewed And Are Negative: Yes Constitutional: Positive: Fever, Other - see hpi Skin: Positive: Negative Eyes: Positive: Negative ENT: Positive: Nasal Discharge, Sinus Congestion, Sinus Pain/Tenderness Respiratory: Positive: Cough, Other - see hpi Cardiovascular: Positive: Other - see hpi Gastrointestinal: Positive: Negative Motor: Positive: Negative Neurovascular: Positive: Negative Musculoskeletal: Positive: Negative Neurological: Positive: Negative Psychological: Positive: Negative Is Patient Immunocompromised?: No Physical Exam Triage Information Reviewed: Yes Appearance: Well-Appearing, No Pain Distress, Well-Nourished Vital Signs: Initial Vital Signs Temp 98.6 F 02/13/19 16:51 Pulse 78 02/13/19 16:51 Resp 16 02/13/19 16:51 BP 186/124 02/13/19 16:51 Pulse Ox 100 02/13/19 16:51 Vital Signs Reviewed: Yes Eye Exam: Normal Eyes: Positive: Conjunctiva Clear ENT: Positive: Pharyngeal erythema, Nasal congestion, Nasal drainage, TMs normal Neck: Positive: Supple Respiratory: Positive: Lungs clear, Normal breath sounds, No respiratory distress Cardiovascular: Positive: RRR Musculoskeletal: Positive: Strength Intact, ROM Intact Neurological: Positive: Alert, Muscle Tone Normal Psychological: Positive: Age Appropriate Behavior Throat Pain/Nasal Course/Dx - Course Course Of Treatment: Air Tester: Emmanuel Mcdaniel ([id number]) Solution Lead: SRINIVASAN (SRINIVASAN) Report Date: 02/13/2019 17:32:00 Report Status: Final Start of Report Content Patient Name: JAY FU Medical Record#: [id number] Ordering Physician: Matty Ordoñez MD Acct.#: [id number] : 09/1985 Age: 33 Sex: F Location: [facility] Exam Date: 02/13/19 1704 ADM Status: REG ER Order Information: CHEST PA LAT 2 VWS Accession Number: [id number] CPT: 97326 INDICATION: 3 weeks of cough and fever COMPARISON: Most recent comparison chest x-rays dated May 09, 2018 TECHNIQUE: PA and lateral views of the chest were obtained. FINDINGS: The heart and mediastinum are normal in size and contour. The lungs are grossly clear. There is no evidence of large pleural effusion. Visualized bones are normal for the patient's age. There is no radiographic evidence of free air beneath the diaphragm IMPRESSION: No radiographic evidence of acute cardiopulmonary disease. <Electronically signed by Emmanuel Mcdaniel MD in OV> 02/13/191727 Dictated By: Emmanuel Mcdaniel MD Dictated Date/Time: 1726 Transcribed Date/Time: 02/13/191726 Copy to: CC:No Primary Care Phys, NOPCP ; Matty Ordoñez MD Imaging - [facility] - [facility] - [facility] [address] [place] [id number] [address] [address] ph [phone]) ph ([phone]) ph ([phone]) ==== End of Report Content Discussed the chest x-ray results with the patient. is wheezing therefore we' ll treat just with the antibiotic for her greater than 10 days of bronchitis symptoms. Get reevaluated by her primary care doctor get seen sooner if worse or any questions or concerns. - Differential Dx/Diagnosis Provider Diagnosis: Bronchitis Discharge ED - Sign-Out/Discharge Documenting (check all that apply): Patient Departure All imaging exams completed and their final reports reviewed: Yes - Discharge Plan Condition: Stable Disposition: HOME Prescriptions: DOXYcycline CAP(*) [DOXYcycline 100MG CAP(*)] 100 mg PO BID #20 cap Patient Education Materials: Acute Bronchitis (ED) Referrals: [facility] [Outside] Additional Instructions: FOLLOW UP WITH YOUR DOCTOR IF NOT COMPLETELY IMPROVED. GET REEVALUATED SOONER IF NOT IMPROVED OR WORSE OR ANY QUESTIONS OR CONCERNS. - Billing Disposition and Condition Condition: STABLE Disposition: Home
== END 2019-02-13 17:52 | disposition home or self-care (01) ==
LOC: UCEAST 16:40
DX: J40 Bronchitis, not specified as acute or chronic (principal); I10 Essential (primary) hypertension; R09.81 Nasal congestion; Z91.013 Allergy to seafood; Z88.7 Allergy status to serum and vaccine; Z91.09 Other allergy status, other than to drugs and biological substances
CPT/HCPCS: 71046; 99212; G0463